=== PATIENT | male | born 1950 | race Caucasian/White ===

== ENCOUNTER 2017-06-13 14:00 | Outpatient (RCR) | payer MEDICARE, OTHER ==
[~2017-06-13 14:00] MED LIST: AMITRIPTYLINE H25 MG PO; ASPIRIN81 MG PO; BENICAR20 MG PO; NEXIUM40 MG PO; NORCO 7.5-3251 EACH PO; PLAVIX75 MG PO; SIMVASTATIN20 MG PO
== END 2017-06-16 ==
LOC: PT 14:00
PROVIDERS: ATTEND Family Medicine
DX: M54.2 Cervicalgia (principal); M62.830 Muscle spasm of back; M62.81 Muscle weakness (generalized)
CPT/HCPCS: 97010 ×3; 97110 ×5; 97162; G8990; G8991

== ENCOUNTER 2017-08-12 10:10 | Inpatient (IN) | payer MEDICARE, OTHER ==
[~2017-08-12] VITALS: Ht 190.5 cm; Wt 77.1 kg
[2017-08-12] MEDS ORDERED: IPRATROPIUM BROMIDE 0.02% 2.5 ML NEB NEB STA (10:11)
[2017-08-12] MEDS ORDERED: ENOXAPARIN INJ 80 MG/0.8 ML SYR SC STA (10:11)
[2017-08-12] MEDS ORDERED: ALBUTEROL SULF 0.083% NEB SOLN 3 ML NEB NEB NR (10:30)
[2017-08-12] MEDS ORDERED: METHYLPREDNISOLONE SOD SUCC 125 MG/2ML VIAL IV NR (10:30)
[2017-08-12 10:41] LABS: BASOPHILS % 0.4 % (0.0-1.0); EOSINOPHILS % 0.1 % (0.0-6.0); HEMATOCRIT 50.7 % (38.2-49.6); HEMOGLOBIN 17.2 g/dL (14.0-18.0); LYMPHOCYTES # (AUTO) 2.4 (1.0-3.2); MEAN CORPUSCULAR HEMOGLOBIN 29.3 pg (28-32); MEAN CORPUSCULAR HGB CONC 33.9 g/dL (31-35); MEAN CORPUSCULAR VOLUME 86.2 fL (81-99); MONOCYTES # (AUTO) 0.8 (0.2-0.8); MONOCYTES % 11.4 % (4.4-11.3); NEUTROPHILS # (AUTO) 3.5 (2.1-6.9); NEUTROPHILS % 51.8 % (38.7-80.0); PLATELET COUNT 204 x10e3/uL (140-360); RED BLOOD COUNT 5.88 x10e6/uL (4.3-5.7); RED CELL DISTRIBUTION WIDTH 14.9 % (11.7-14.4)
[2017-08-12 11:00] LABS: INR 0.98; PROTHROMBIN TIME 12.2 seconds (11.9-14.5)
[2017-08-12 11:01] LABS: ALBUMIN 3.4 g/dL (3.5-5.0); ALBUMIN/GLOBULIN RATIO 0.9 (0.8-2.0); ANION GAP 14.8 mmol/L (8-16); CREATININE, SERUM 1.56 mg/dL (0.72-1.25); PARTIAL THROMBOPLASTIN TIME 31.6 seconds (23.8-35.5); POTASSIUM 4.8 mmol/L (3.5-5.1)
[2017-08-12 11:08] LABS: CREATINE KINASE MB 5.8 ng/mL (0-5.0)
--- NOTE | 2017-08-12 11:17 | Diagnostic Imaging Report ---
PROCEDURE: A single AP view of the chest. COMPARISON: None. INDICATIONS: SHORTNESS OF BREATH FINDINGS: Lines/tubes: None. Lungs: The lungs are well inflated. Opacities in the lungs bilaterally likely represent atelectasis or scarring. Incidental note of an azygos fissure. Upper lung predominant hyperlucency is suggestive of emphysema. There is no evidence of pneumonia or pulmonary edema. Pleura: There is no pleural effusion or pneumothorax. Heart and mediastinum: The heart and the mediastinum are unremarkable. Bones: No acute bony abnormality. Lower cervical fusion hardware. IMPRESSION: No acute cardiopulmonary disease. Dictated by: Davon Pereira M.D. on 08/12/2017 at 11:17 Electronically approved by: Davon Pereira M.D. on 08/12/2017 at 11:17
[2017-08-12] MEDS ORDERED: SODIUM CHLORIDE 0.9% 500ML 500 ML IV ONE (11:30)
[2017-08-12 12:05] LABS: ABG HCO3 24 mmol/L (23-28); ABG PCO2 47 mmHg (41-51); ABG PH 7.31 (7.31-7.41); ABG PO2 74 mmHg (80-105)
[2017-08-12] MEDS ORDERED: LORAZEPAM INJ 2 MG/ML VIAL IV ONE ×2 (12:30→16:30)
--- NOTE | 2017-08-12 13:58 | Diagnostic Imaging Report ---
PROCEDURE: CT scan of the chest WITH intravenous contrast, using PE protocol. TECHNIQUE: The chest was scanned utilizing a multidetector helical scanner from the lung apex through the level of the adrenal glands after the IV administration of 100 cc of Isovue 370. Coronal and sagittal multiplanar reformations were obtained. DLP: 619.4 mGy-cm COMPARISON: None. INDICATIONS: PULMONARY EMBOLISM FINDINGS: Lines/tubes: None. Lungs and Airways: Severe emphysematous changes including a large right apical bulla which occupies the right lung apex. No focal consolidations. Motion artifacts at the lung bases decreases sensitivity for small nodules and ground glass opacities. A rounded opacity in the left apical bronchus (coronal image 67) is associated with adjacent subsegmental atelectasis. No filling defects in the pulmonary arteries to the level of the segmental pulmonary arteries. Pleura: The pleural spaces are clear. Heart and mediastinum: The thyroid gland is normal. No significant mediastinal, hilar or axillary lymphadenopathy is seen. The heart and pericardium are within normal limits. Main pulmonary artery measures 2.8 cm in diameter. Ascending aorta measures 4.6 cm in diameter. Soft tissues: Normal. Abdomen: Left hepatic 0.5 cm and 1 cm hypodensities are too small to characterize. Renal cysts, largest is partially visualized and measures at least 4.3 cm in the right kidney. Additional hypodensities in both kidneys are too small to characterize. Otherwise, the limited views of the visualized liver, spleen, pancreas, or kidneys are unremarkable. The adrenal glands are normal. Bones/Soft Tissues: No acute lowers suspicious osseous lesions. Lower cervical fusion hardware. Left subscapular intramuscular 5.7 x 2.4 cm lipoma. IMPRESSION: 1. No evidence of pulmonary embolism to the level of the segmental pulmonary arteries. 2. Borderline aneurysmal dilatation of the ascending aorta measuring 4.6 cm. 3. Severe emphysematous changes. 4. Suspect small endobronchial lesion resulting in subsegmental atelectasis in the left upper lobe versus rounded mucus plug. Dictated by: Davon Pereira M.D. on 08/12/2017 at 13:58 Electronically approved by: Davon Pereira M.D. on 08/12/2017 at 13:58
[2017-08-12] MEDS ORDERED: ALPRAZOLAM0.5 MG PO ×2 (14:19)
[2017-08-12] MEDS ORDERED: MAGNESIUM400 MG PO (14:19)
[2017-08-12] MEDS ORDERED: FLOMAX0.4 MG PO (14:19)
[2017-08-12] MEDS ORDERED: SUMATRIPTAN IM (14:20)
[2017-08-12] MEDS ORDERED: SYMBICORT 16010.2 GM (14:20)
[2017-08-12] MEDS ORDERED: HYDROMET SYRUP473 ML PO (14:23)
[2017-08-12] MEDS ORDERED: CEFUROXIME250 MG PO (14:23)
[2017-08-12] MEDS ORDERED: ALBUTEROL0.63 MG/3 NEB (14:23)
[2017-08-12] MEDS ORDERED: ZOFRAN ODT4 MG SL (14:23)
[2017-08-12] MEDS ORDERED: SODIUM CHLORIDE FLUSH 10 ML SYR INJ PRN (14:45)
[2017-08-12] MEDS ORDERED: SODIUM CHLORIDE 0.9% 50ML 50 ML ONE (14:49)
[2017-08-12] MEDS ORDERED: IOPAMIDOL 370 MG/ML 200 ML INFUS..BTL INJ ONE (14:50)
[2017-08-12] MEDS ORDERED: ALBUTEROL SULF 0.083% NEB SOLN 3 ML NEB NEB SCH (15:00)
[2017-08-12] MEDS: IPRATROPIUM BROMIDE 0.02% 2.5 ML NEB NEB SCH ×3 (16:30→23:15)
[2017-08-12] MEDS: METHYLPREDNISOLONE SOD SUCC 40 MG/ML VIAL IV SCH (18:20)
--- OUTSIDE RECORDS SUMMARY | 2017-08-12 18:40 | XMS REPORT ---
Author Author [facility] Address Unknown Phone Unavailable Care Team Providers Care Staff Climate Scientist Name Role Phone CHARLOTTE BELL Unavailable Unavailable Problems This patient has no known problems. Allergies, Adverse Reactions, Alerts This patient has no known allergies or adverse reactions. Medications This patient has no known medications. Results Test Description Test Time Test Comments Text Results Atomic Results Result Comments CHEST SINGLE (PORTABLE) [place] [address] Patient Name: EVENS MCDANIEL MR #: [id number] : 1950 Age/Sex: 67/M Req #: [id number] Adm Physician: Ordered by: CHARLOTTE BELL MD Report #: [id number] Location: ER Room/Bed: Procedure: [id number] DX/CHEST SINGLE (PORTABLE) Exam Date: 08/12/17 Exam Time: 1050 REPORT STATUS: Signed PROCEDURE: A single AP view of the chest. COMPARISON: None. INDICATIONS: SHORTNESS OF BREATH FINDINGS: Lines/tubes: None. Lungs: The lungs are well inflated. Opacities in the lungs bilaterally likely represent atelectasis or scarring. Incidental note of an azygos fissure. Upper lung predominant hyperlucency is suggestive of emphysema. There is no evidence of pneumonia or pulmonary edema. Pleura: There is no pleural effusion or pneumothorax. Heart and mediastinum: The heart and the mediastinum are unremarkable. Bones: No acute bony abnormality. Lower cervical fusion hardware. IMPRESSION: No acute cardiopulmonary disease. Dictated by: Davon Smith M.D. on 08/12/2017 at 11:17 Electronically approved by: Davon Smith M.D. on 08/12/2017 at 11:17 Dictated By: DAVON SMITH MD 1117 COPY TO: CHARLOTTE BELL MD CT CHEST W [place] [address] Patient Name: EVENS MCDANIEL MR #: [id number] : 1950 Age/Sex: 67/M Req #: [id number] Adm Physician: Ordered by: CHARLOTTE BELL MD Report #: [id number] Location: ER Room/Bed: Procedure: [id number] CT/CT CHEST W Exam Date: 08/12/17 Exam Time: 1315 REPORT STATUS: Signed PROCEDURE: CT scan of the chest WITH intravenous contrast, using PE protocol. TECHNIQUE: The chest was scanned utilizing a multidetector helical scanner from the lung apex through the level of the adrenal glands after the IV administration of 100 cc of Isovue 370. Coronal and sagittal multiplanar reformations were obtained. DLP: 619.4 mGy-cm COMPARISON: None. INDICATIONS: PULMONARY EMBOLISM FINDINGS: Lines/tubes: None. Lungs and Airways: Severe emphysematous changes including a large right apical bulla which occupies the right lung apex. No focal consolidations. Motion artifacts at the lung bases decreases sensitivity for small nodules and ground glass opacities. A rounded opacity in the left apical bronchus (coronal image 67) is associated with adjacent subsegmental atelectasis. No filling defects in the pulmonary arteries to the level of the segmental pulmonary arteries. Pleura: The pleural spaces are clear. Heart and mediastinum: The thyroid gland is normal. No significant mediastinal, hilar or axillary lymphadenopathy is seen. The heart and pericardium are within normal limits. Main pulmonary artery measures 2.8 cm in diameter. Ascending aorta measures 4.6 cm in diameter. Soft tissues: Normal. Abdomen: Left hepatic 0.5 cm and 1 cm hypodensities are too small to characterize. Renal cysts, largest is partially visualized and measures at least 4.3 cm in the right kidney. Additional hypodensities in both kidneys are too small to characterize. Otherwise, the limited views of the visualized liver, spleen, pancreas, or kidneys are unremarkable. The adrenal glands are normal. Bones/Soft Tissues: No acute lowers suspicious osseous lesions. Lower cervical fusion hardware. Left subscapular intramuscular 5.7 x 2.4 cm lipoma. IMPRESSION: 1. No evidence of pulmonary embolism to the level of the segmental pulmonary arteries. 2. Borderline aneurysmal dilatation of the ascending aorta measuring 4.6 cm. 3. Severe emphysematous changes. 4. Suspect small endobronchial lesion resulting in subsegmental atelectasis in the left upper lobe versus rounded mucus plug. Dictated by: Davon Smith M.D. on 08/12/2017 at 13:58 Electronically approved by: aDvon Smith M.D. on 08/12/2017 at 13:58 Dictated By: DAVON SMITH MD 1358 COPY TO: CHARLOTTE BELL MD
[2017-08-12 18:45] LABS: BILIRUBIN,URINE NEGATIVE (NEGATIVE); CLARITY,URINE CLEAR (CLEAR); COLOR,URINE YELLOW (YELLOW); KETONES,URINE NEGATIVE (NEGATIVE); LEUKOCYTE ESTERASE ,URINE NEGATIVE (NEGATIVE); NITRITE,URINE NEGATIVE (NEGATIVE); PROTEIN,URINE DIPSTICK 1+ (NEGATIVE); URINE UROBILINOGEN 0.2 mg/dL (0.2 - 1)
[2017-08-12] MEDS ORDERED: ONDANSETRON HCL 4 MG ORAL DISINTEGRATING TAB SL PRN (18:45)
[2017-08-12 19:14] LABS: EPITHELIAL CELLS,URINE RARE /LPF; RBC,URINE 0-5 /HPF (0-5)
[2017-08-12 19:15] LABS: FREE THYROXINE INDEX 2.5938 (1.4-3.8); THYROID STIMULATING HORMONE 0.735 uIU/mL (0.350-4.940)
[2017-08-12] MEDS: SODIUM CHLORIDE 0.9% 1000ML 1,000 ML IV SCH (19:50)
--- NOTE | 2017-08-12 20:32 | History and Physical ---
A 67-year-old gentleman comes in with shortness of breath, dyspnea, and orthopnea. HISTORY OF PRESENT ILLNESS: This is a 67-year-old gentleman with a history of COPD. He was in his usual state of health until about a week prior to admission the patient started to have shortness of breath, tachypnea, orthopnea and the patient went to see his PCP, Dr. Miguel. The patient was given antibiotics, and felt a little bit better, but this morning the patient's shortness of breath got really bad. The patient was admitted to the hospital for atrial flutter and COPD exacerbations. PAST MEDICAL HISTORY: History of hypertension, history of peripheral arterial disease, history of anxiety, history of hypertension, history of hyperlipidemia, history of reflux esophagitis and history of BPH. MEDICATIONS: Amitriptyline 75 mg daily, alprazolam 0.5 mg 2 at night time, Benicar 20 mg half tablet daily, simvastatin 20 mg at nighttime, Nexium 40 mg daily, Graham 81 mg daily, magnesium 400 mg daily, Symbicort 168 two puffs twice a day, Tamsulosin 0.4 mg at bedtime, Imitrex shots for migraines, hydrocodone 7.5 mg q.4 h. as needed, Albuterol nebulizers q.4 h. as needed. PAST SURGICAL HISTORY: History of stents in 2016 with history of multiple orthopedic surgeries including cervical diskectomy and also lumbar diskectomy. SOCIAL HISTORY: Smoking since he was 16 years of age, about 1-2 packs a day. No ETOH, no IV drug abuse. REVIEW OF SYSTEMS: Negative for chest pain, positive for shortness of breath, positive for orthopnea. No nausea, vomiting or diarrhea. No constipation. No rectal bleeding. No hematochezia. The patient has not been eating for the last one week secondary to orthopnea. No diplopia and no blurry vision. PHYSICAL EXAMINATION GENERAL: The patient is alert and oriented x3. He is not on BiPAP. HEENT: Normocephalic, atraumatic. Pupils react to light and accommodation. CVS: Regular, tachycardiac. ABDOMEN: Nontender, nondistended. LUNGS: Positive for rhonchi bilaterally EXTREMITIES: Possible clubbing. No edema. The patient's EKG shows atrial flutter at a rate of 115, tachycardia. Chest x-ray normal chest x-ray, normal silhouette . CT no acute disease. CBC is normal. Chemistry: BUN 15 and creatinine of 1.56. Cardiac labs: BNP of 10. ABGs with pH of 7.3, PO2 of 74, bicarb 24. ASSESSMENT: 1. Patient with atrial flutter. 2. Chronic obstructive pulmonary disease exacerbation. 3. History of hypertension. 4. History of smoking. PLAN: The patient is on BiPAP at this time. Solu-Medrol will be given to the patient. A consult with Dr. Gardiner has been done. Will start the patient on Rocephin and Zithromax. For atrial flutter, the patient's regulatory internship is Dr. Ahn. Will consult him. Weight control will be obtained. Will also discontinue the Albuterol and give him Xopenex. Thyroid panel will be done. CBC and CMP will be done in the morning. Further recommendations depending on clinical course. Will continue to monitor the patient and slowly taper off the steroids when the patient is responding. For his anxiety, he is on Xanax at this time. Will give him Ativan 0.5 mg q.6 h. as needed, not recommended for COPD, but will continue because the patient has been taking benzodiazepine and he feels like he is withdrawing. Will continue to monitor the patient and give him IV fluids 125 mL an hour. Job#: [id number]
[2017-08-12 20:40] LABS: CREATINE KINASE MB 7.3 ng/mL (0-5.0)
[2017-08-12] MEDS: LORAZEPAM INJ 2 MG/ML VIAL IV PRN (20:41)
[2017-08-12] MEDS: CEFTRIAXONE SOD 1 GM VIAL IV SCH (20:41)
[2017-08-12] MEDS: LEVALBUTEROL HCL SOLN NEBU 0.63 MG/3 ML NEB INH SCH ×2 (21:00→23:15)
[2017-08-12] MEDS ORDERED: SIMVASTATIN 20 MG TAB PO SCH (21:00)
[2017-08-12 23:36] VITALS: BP 141/99
[2017-08-13] VITALS (57 sets, daily range): BP systolic 80–162; BP diastolic 53–97
[2017-08-13] MEDS: LEVALBUTEROL HCL SOLN NEBU 0.63 MG/3 ML NEB INH SCH ×6 (00:10→19:20)
[2017-08-13] MEDS: IPRATROPIUM BROMIDE 0.02% 2.5 ML NEB NEB SCH ×6 (00:10→19:20)
[2017-08-13] MEDS: METHYLPREDNISOLONE SOD SUCC 40 MG/ML VIAL IV SCH ×5 (00:56→23:45)
[2017-08-13] MEDS: HYDROCODONE/APAP 7.5MG-325MG 1 EA TAB PO SCH ×2 (00:56→05:59)
[2017-08-13] MEDS: LORAZEPAM INJ 2 MG/ML VIAL IV PRN (02:46)
[2017-08-13 05:29] LABS: BASOPHILS % 0.5 % (0.0-1.0); HEMATOCRIT 49.6 % (38.2-49.6); HEMOGLOBIN 16.4 g/dL (14.0-18.0); LYMPHOCYTES # (AUTO) 0.8 (1.0-3.2); LYMPHOCYTES % 19.1 % (18.0-39.1); MEAN CORPUSCULAR HGB CONC 33.1 g/dL (31-35); MEAN CORPUSCULAR VOLUME 87.8 fL (81-99); MONOCYTES # (AUTO) 0.2 (0.2-0.8); MONOCYTES % 5.5 % (4.4-11.3); NEUTROPHILS # (AUTO) 3.1 (2.1-6.9); NEUTROPHILS % 74.7 % (38.7-80.0); PLATELET COUNT 229 x10e3/uL (140-360); RED BLOOD COUNT 5.65 x10e6/uL (4.3-5.7)
[2017-08-13 05:32] LABS: BILIRUBIN,URINE NEGATIVE (NEGATIVE); KETONES,URINE TRACE (NEGATIVE); LEUKOCYTE ESTERASE ,URINE NEGATIVE (NEGATIVE); NITRITE,URINE NEGATIVE (NEGATIVE); URINE UROBILINOGEN 0.2 mg/dL (0.2 - 1)
[2017-08-13 05:37] LABS: CLARITY,URINE SL CLOUDY (CLEAR); COLOR,URINE YELLOW (YELLOW); PROTEIN,URINE DIPSTICK 1+ (NEGATIVE)
[2017-08-13 05:39] LABS: AMORPHOUS SEDIMENT,URINE FEW (FEW); BACTERIA,URINE MODERATE /HPF; EPITHELIAL CELLS,URINE RARE /LPF; RBC,URINE 0-5 /HPF (0-5); WBC,URINE (MAN) 0-5 /HPF (0-5)
[2017-08-13 05:51] LABS: ANION GAP 15.7 mmol/L (8-16); BLOOD UREA NITROGEN 45 mg/dL (7-26); BUN/CREATININE RATIO 42 (6-25); CALCIUM 8.9 mg/dL (8.4-10.2); CARBON DIOXIDE 21 mmol/L (22-29); CHLORIDE 107 mmol/L (98-107); CREATINE KINASE 499 IU/L (30-200); CREATININE, SERUM 1.06 mg/dL (0.72-1.25); EST GLOMERULAR FILTRATION RATE > 60 ML/MIN (60-); GLUCOSE 118 mg/dL (74-118); POTASSIUM 5.7 mmol/L (3.5-5.1); SODIUM 138 mmol/L (136-145)
[2017-08-13] MEDS: SODIUM CHLORIDE 0.9% 1000ML 1,000 ML IV SCH ×2 (05:59→16:09)
[2017-08-13 07:01] LABS: ABG PH 7.32 (7.31-7.41)
[2017-08-13 07:02] LABS: ABG HCO3 24 mmol/L (23-28); ABG PCO2 46 mmHg (41-51); ABG PO2 125 mmHg (80-105)
[2017-08-13] MEDS ORDERED: ROCURONIUM BROMIDE 1 ML ONE ×2 (07:26→07:30)
[2017-08-13] MEDS ORDERED: PROPOFOL IV EMULSION 10MG/ML 100 ML ONE (07:35)
[2017-08-13 07:41] LABS: ANISOCYTOSIS SLIGHT; BLAST CELLS % MANUAL 1; LYMPHOCYTES % (MANUAL) 6 % (19-48); METAMYELOCYTES % (MANUAL) 1 % (0-0); MONOCYTES % (MANUAL) 7 % (3.4-9.0); NEUTROPHILS % (MANUAL) 73 % (40-74); PLATELET MORPHOLOGY COMMENT NORMAL; POIKILOCYTOSIS SLIGHT; RBC MORPHOLOGY COMMENT NORMAL
[2017-08-13] MEDS ORDERED: LEVALBUTEROL HCL SOLN NEBU 1.25 MG/3 ML NEB INH ONE (08:00)
--- NOTE | 2017-08-13 08:00 | Diagnostic Imaging Report ---
PROCEDURE: CHEST SINGLE (PORTABLE) COMPARISON: 08/12/2017. INDICATIONS: R/O PNEUMOTHORAX FINDINGS: Lungs are hyperinflated. Costophrenic sulci are not included on the examination. Advanced emphysematous changes with a large right apical bulla, unchanged. No pneumothorax. Cardiomediastinal contour and pulmonary vasculature are also unchanged. No acute osseous abnormality. Cervical spine fusion hardware partially visualized. CONCLUSION: Advanced emphysematous changes with a large right apical bulla, unchanged. No pneumothorax. Dictated by: Matthew Rodriguez M.D. on 08/13/2017 at 7:59 Electronically approved by: Matthew Rodriguez M.D. on 08/13/2017 at 7:59
--- NOTE | 2017-08-13 08:04 | Diagnostic Imaging Report ---
PROCEDURE: CHEST SINGLE (PORTABLE) COMPARISON: Earlier 08/13/2017. INDICATIONS: POST INTUBATION FINDINGS: See conclusion CONCLUSION: 1. Interval intubation. The tip of the endotracheal tube projects approximately 4 cm superior to the dustin. 2. Unchanged advanced emphysema with a large right apical bulla. Lung bases are not included on the examination. Dictated by: Matthew Rodriguez M.D. on 08/13/2017 at 8:04 Electronically approved by: Matthew Rodriguez M.D. on 08/13/2017 at 8:04
[2017-08-13] MEDS: FENTANYL CITRATE INJ 2,000 MCG in SODIUM CHLORIDE 0.9% 250ML 210 ML IV PRN (08:59)
[2017-08-13] MEDS: MIDAZOLAM HCL 25 MG in SODIUM CHLORIDE 0.9% 50ML 45 ML IV PRN ×4 (08:59→21:29)
[2017-08-13] MEDS ORDERED: ASPIRIN 81 MG CHEW TAB PO SCH (09:00)
[2017-08-13] MEDS ORDERED: PANTOPRAZOLE SOD 40 MG TABEC PO SCH (09:00)
[2017-08-13] MEDS ORDERED: AMITRIPTYLINE HCL 25 MG TAB PO SCH (09:00)
[2017-08-13] MEDS ORDERED: OLMESARTAN 20 MG TAB PO SCH (09:00)
[2017-08-13] MEDS ORDERED: TAMSULOSIN HCL 0.4 MG CAP PO SCH (09:00)
[2017-08-13] MEDS: AZITHROMYCIN 500MG/NS 250 ML 250 ML IV SCH (10:03)
[2017-08-13] MEDS: ENOXAPARIN INJ 80 MG/0.8 ML SYR SC SCH ×2 (10:03→21:05)
[2017-08-13 10:05] LABS: ABG PH 7.21 (7.31-7.41)
[2017-08-13 10:06] LABS: ABG HCO3 27 mmol/L (23-28); ABG PCO2 66 mmHg (41-51); ABG PO2 125 mmHg (80-105)
[2017-08-13] MEDS: METOPROLOL TARTRATE INJ 1 MG/ML VIAL IV SCH ×4 (10:38→21:05)
--- NOTE | 2017-08-13 14:53 | Consultation ---
DATE OF CONSULTATION: PULMONARY CRITICAL CARE CONSULTATION REASON FOR CONSULTATION: Shortness of breath, fever and ventilator management. CHIEF COMPLAINTS: Shortness of breath getting worse for last 1-1/2 weeks. HPI: Mr. Daugherty is a 67-year-old male who presented to the emergency room with complaint of shortness of breath, dyspnea and orthopnea. The symptoms were going on for 1-1/2 weeks. Patient received antibiotics and Solu-Medrol shot from PCP, Dr. Gurjit Ying. He felt a little better, but his shortness of breath progressively got worse and so his decided to bring him to the emergency room. He was put on BiPAP and oxygen, and was not improving, and becoming more and more short of breath with reduced air entry bilaterally. He was intubated this morning. He is currently sedated and intubated. The source of history is the patient's . REVIEW OF SYSTEMS: Unable to elicit any as patient is intubated and sedated. PAST MEDICAL HISTORY: Hypertension, peripheral arterial disease, anxiety, reflux esophagitis, hyperlipidemia, severe COPD. Patient is not on home oxygen. PAST SURGICAL HISTORY: Stents in the lower extremity in 2016. He had cervical disk surgery, jaw surgery, back surgeries. Patient is on disability because of chronic back pain. FAMILY AND SOCIAL HISTORY: He has been a smoker for 50+ years of 1-2 packs per day. Denies any alcohol or drug use. PHYSICAL EXAMINATION VITALS: Temperature 98, pulse of 100, blood pressure is 145/97. HEENT: Head is atraumatic and normocephalic. Pupils are reactive. NECK: Supple. CHEST: He is intubated. Chest with markedly reduced air entry. HEART: S1 and S2 audible. No murmurs, gallops or rub. ABDOMEN: Soft, nontender and nondistended. Bowel sounds audible. EXTREMITIES: No clubbing, cyanosis or edema. NEUROLOGIC: Sedated and intubated. LABS: White count of 6.69, hemoglobin 17.2 and platelets 204,000. Chemistry: Sodium 138, potassium 5.7, chloride 107, BUN 45, creatinine 1.06. INR is 0.98. I reviewed the chest x-ray and CT chest. It is showing severe bullous disease with large bullae on the right. No definite infiltrate. ASSESSMENT AND PLAN: Mr. Daugherty is a 67-year-old male who presented to the emergency room with worsening shortness of breath and has severe chronic obstructive pulmonary disease. Computerized tomography of severe emphysema as well. CURRENT PROBLEMS 1. Acute exacerbation of chronic obstructive pulmonary disease. 2. Smoker. 3. Hypertension. 4. Peripheral arterial disease. 5. Polycythemia secondary to smoking and still smokes. PLAN 1. The patient has been intubated. I have reviewed the ventilator settings. Patient has a problem with auto peeping. I have reduced the rate to 14 and increased the tidal volume to 500 with increase in the PEEP to 8. Ventilator setting will observed at bedside. Patient's breathing was observed at bedside. He has been synched with the ventilator. 2. IV Rocephin and azithromycin. 3. Continue the patient on Solu-Medrol as ordered. Discussed with the patient's at bedside in detail. Reviewed all the images. I discussed the imaging findings with the patient and the patient's as well. Critical care time spent 45 minutes. Job#: [id number] YOMAIRA
[2017-08-13] MEDS ORDERED: FUROSEMIDE INJ 10 MG/ML 2 ML VIAL IV ONE (16:15)
--- NOTE | 2017-08-13 20:45 | Consultation ---
DATE OF CONSULTATION: August 13, 2017 CARDIOLOGY CONSULTATION REQUESTING PHYSICIAN: Dr. Uriel Mo REASON FOR CONSULTATION: Atrial flutter. HISTORY OF PRESENT ILLNESS: This is a 67-year-old male with history of COPD, hypertension, peripheral arterial disease, status post lower extremity revascularization, and hyperlipidemia, who presented with shortness of breath. All history is obtained from the EMR. The patient apparently had shortness of breath, orthopnea and tachypnea 1 week prior to admission. He went to see his PCP, Dr. Miguel, and was given antibiotic with some relief. However, he had worsening shortness of breath yesterday and presented to the hospital for shortness of breath and atrial flutter. He was started on BiPAP. However, he continued to have increasing respiratory distress and was subsequently intubated by pulmonary. He remains currently intubated and sedated. No family was at bedside for further history. REVIEW OF SYSTEMS: Unable to obtain as the patient is intubated and sedated. PAST MEDICAL HISTORY 1. COPD. 2. Hypertension. 3. Hyperlipidemia. 4. Peripheral arterial disease, status post revascularization. 5. Minimal coronary artery disease on cardiac catheterization. 6. Anxiety. 7. Reflux. PAST SURGICAL HISTORY 1. Back surgery. 2. Jaw surgery. 3. Neck surgery. SOCIAL HISTORY: Extensive smoking history. No alcohol or drugs. FAMILY HISTORY: Noncontributory. PHYSICAL EXAMINATION VITAL SIGNS: Temperature 98.8 degrees, pulse 101, respiratory rate 18, blood pressure 149/96, oxygen saturation 96% on mechanical ventilation. GENERAL: Well-developed, well-nourished, in no acute distress, intubated and sedated. HEENT: Normocephalic and atraumatic. Pupils are equal. No scleral icterus. NECK: Supple. No thyromegaly or cervical lymphadenopathy. No carotid bruit. LUNGS: Reduced breath sounds bilaterally. No wheezes or crackles. CARDIOVASCULAR: Normal rate, regular rhythm. No murmur. Normal S1 and S2. ABDOMEN: Soft. Nontender. EXTREMITIES: No edema. NEURO: Unable to obtain secondary to sedation. LABS: WBC 4.19, hemoglobin 16.4, hematocrit 49.6, platelets 229. Sodium 138, potassium 5.7, chloride 107, CO2 21, BUN 45, creatinine 1.06. Troponin 0.017. EKG: Sinus tachycardia, left axis deviation, incomplete right bundle-branch block, possible anterior infarct age undetermined. ECHOCARDIOGRAM: Technically difficult study with normal LV size and function with mild LVH, pseudonormal LV filling pattern. RV is severely enlarged, but systolic function appears normal. IMPRESSION 1. Chronic obstructive pulmonary disease exacerbation. 2. Suspect atrial flutter. 3. Tobacco abuse. 4. Hypertension. 5. Peripheral arterial disease, status post revascularization. 6. Minimal coronary artery disease on cardiac catheterization. 7. Hyperlipidemia. RECOMMENDATIONS: Continue current cardiac medications. IV antibiotics per primary service. Review of the EKGs and telemetry does not demonstrate any atrial fibrillation or atrial flutter. There is 1 EKG with machine reading of atrial flutter. However, on exam, it appears to be sinus tachycardia. We will continue to monitor the patient on telemetry. Ventilator management per pulmonary. Thank you for this consult. We will continue to follow. Job#: [id number]
[2017-08-13] MEDS: CEFTRIAXONE SOD 1 GM VIAL IV SCH (21:05)
[2017-08-13] MEDS ORDERED: SODIUM CHLORIDE 0.9% 1000ML 1,000 ML IV ONE (23:00)
[2017-08-14] VITALS (91 sets, daily range): BP systolic 81–132; BP diastolic 49–78
[2017-08-14] MEDS: METOPROLOL TARTRATE INJ 1 MG/ML VIAL IV SCH ×6 (01:39→21:47)
[2017-08-14] MEDS: SODIUM CHLORIDE 0.9% 1000ML 1,000 ML IV SCH ×3 (01:40→17:29)
[2017-08-14] MEDS: NOREPINEPHRINE BITARTRATE/ NS 250 ML IV PRN ×2 (01:40→16:54)
[2017-08-14] MEDS: LEVALBUTEROL HCL SOLN NEBU 0.63 MG/3 ML NEB INH SCH ×6 (03:40→23:40)
[2017-08-14] MEDS: IPRATROPIUM BROMIDE 0.02% 2.5 ML NEB NEB SCH ×6 (03:40→23:40)
[2017-08-14] MEDS: MIDAZOLAM HCL 25 MG in SODIUM CHLORIDE 0.9% 50ML 45 ML IV PRN ×3 (04:49→14:23)
[2017-08-14] MEDS: METHYLPREDNISOLONE SOD SUCC 40 MG/ML VIAL IV SCH ×2 (05:09→21:46)
[2017-08-14 06:08] LABS: BASOPHILS % 0.2 % (0.0-1.0); HEMATOCRIT 50.9 % (38.2-49.6); HEMOGLOBIN 15.8 g/dL (14.0-18.0); LYMPHOCYTES # (AUTO) 0.6 (1.0-3.2); LYMPHOCYTES % 5.9 % (18.0-39.1); MEAN CORPUSCULAR HEMOGLOBIN 28.7 pg (28-32); MEAN CORPUSCULAR VOLUME 92.4 fL (81-99); MONOCYTES # (AUTO) 0.8 (0.2-0.8); MONOCYTES % 7.6 % (4.4-11.3); NEUTROPHILS # (AUTO) 8.7 (2.1-6.9); PLATELET COUNT 288 x10e3/uL (140-360); RED BLOOD COUNT 5.51 x10e6/uL (4.3-5.7); RED CELL DISTRIBUTION WIDTH 15.9 % (11.7-14.4)
[2017-08-14 06:36] LABS: ALBUMIN 2.9 g/dL (3.5-5.0); ALBUMIN/GLOBULIN RATIO 0.9 (0.8-2.0); ANION GAP 12.3 mmol/L (8-16); CALCIUM 8.5 mg/dL (8.4-10.2); CREATININE, SERUM 1.21 mg/dL (0.72-1.25)
--- NOTE | 2017-08-14 06:41 | Diagnostic Imaging Report ---
EXAM: CHEST SINGLE (PORTABLE), AP 1 view INDICATION: Ventilated patient COMPARISON: None FINDINGS: LINES/TUBES: Stable endotracheal tube. LUNGS: No consolidations or edema. Emphysematous changes with large bulla in the right upper lung. PLEURA: No effusions or pneumothorax. HEART AND MEDIASTINUM: Normal size and contour. BONES AND SOFT TISSUES: No acute findings. IMPRESSION: No interval change. Signed by: Dr. Rosita Eastman M.D. on 08/14/2017 6:38 AM
[2017-08-14 06:46] LABS: POTASSIUM 6.3 mmol/L (3.5-5.1)
[2017-08-14] MEDS: FENTANYL CITRATE INJ 2,000 MCG in SODIUM CHLORIDE 0.9% 250ML 210 ML IV PRN (06:48)
[2017-08-14] MEDS ORDERED: SODIUM CHLORIDE 0.9% 1000ML 1,000 ML IV ONE (07:00)
[2017-08-14] MEDS ORDERED: SODIUM CHLORIDE 0.9% 500ML 500 ML IV ONE (07:15)
[2017-08-14] MEDS ORDERED: DEXTROSE 50% SYRINGE 50 ML IV STA (07:47)
[2017-08-14] MEDS ORDERED: SOD POLYSTYRENE SULFONATE SUSP 15 GM/60 ML BTL PR ONE (08:00)
[2017-08-14] MEDS ORDERED: INSULIN REGULAR, HUMAN 100 UNIT/1 ML 3ML VIAL IV ONE (08:00)
--- NOTE | 2017-08-14 09:02 | Consultation ---
DATE OF CONSULTATION: 08.14 REASON FOR CONSULTATION: Hyperkalemia. Thank you for allowing us to participate in Mr. Daugherty's care. This is a 67-year-old male with a history of COPD came with worsening exacerbation and started on antibiotics. He did not really get better with outpatient therapy. Subsequently, got admitted to the hospital. He is now intubated for worsening respiratory status. The pCO2 was elevated. Creatinine was 1.06 and has gone up to 1.2. He has been on pressors. Fluids are running. The main problem has actually been urine output trending down, and his potassium being elevated at 6.4 on repeat. Initially, UA done yesterday showed some cloudy urine, blood and protein. However, this was a Matta catheter obtained specimen. No casts were reported on that. The pCO2 was as high as 66 yesterday. Hemoglobin has come down to 15.8 from 72. PAST HISTORY 1. COPD. 2. Baseline creatinine of 1 to 1.1 two years ago. 3. History of smoking, ongoing nicotine use. 4. Hypertension. 5. Recent ARB use. 6. Hypertension. History of IV contrast 2 days ago. MEDICATIONS: Currently, on IV NS, Solu-Medrol, norepinephrine, ceftriaxone, azithromycin, metoprolol. He had gotten some Kayexalate. Benicar has been stopped. Protonix has been stopped. Amitriptyline has been stopped. SOCIAL HISTORY: History of smoking at least 40-pack years. FAMILY HISTORY: Hypertension. REVIEW OF SYSTEMS: Unable to obtain as he is intubated. PHYSICAL EXAMINATION GENERAL: Laying in bed in no distress. Appears sedated. VITALS: Pulse 90 and regular, blood pressure 111/69, temperature 99.1. HEENT: Orally intubated. NECK: Veins are not distended. CHEST: Clear with diminished breath sounds bilaterally. CARDIAC: Normal heart tones. Rhythm sounds regular. Unable to hear an S4. EXTREMITIES: No edema. Very cool to touch. ABDOMEN: Benign. NEURO: Appears sedated. LABS: As noted, hemoglobin 15.8, white count 10,000 and platelets are 288,000. UA showed some protein and blood. Blood gas with pH of 7.21, pCO2 66, pO2 125. Potassium is 6.3, sodium 142, chloride 114, bicarb 22, creatinine 1.2, BUN 56. It was as high as 11.5 before and coming down. CK was only 499. ASSESSMENT 1. Acute kidney injury, presumed acute tubular necrosis: There may be a prerenal component from the low blood pressure, as well as potentially high pCO2. 2. Hyperkalemia from any leftover Benicar in the system, as well as poor tubular flow, as well as acute kidney injury and loss of GFR. 3. Probably has some respiratory acidosis that did not quite get compensated. PLAN: From a renal standpoint, tending towards oliguria. From a renal standpoint, I agree with blood pressure support and fluids. Recheck potassium. Will give him 2 amps of D50, regular insulin and Kayexalate. Discussed with the . Will also get urine ultrasound and urine eosinophils as the kidney _injury may still be evolving. Thank you for allowing us to participate in Mr. Daugherty's care. Will follow along. Job#: [id number] YOMAIRA GUTIERREZ
[2017-08-14] MEDS: ENOXAPARIN INJ 80 MG/0.8 ML SYR SC SCH ×2 (09:30→21:46)
[2017-08-14 09:37] LABS: ABG HCO3 24 mmol/L (23-28); ABG PCO2 76 mmHg (41-51); ABG PO2 135 mmHg (80-105)
[2017-08-14] MEDS: AZITHROMYCIN 500MG/NS 250 ML 250 ML IV SCH (10:00)
--- NOTE | 2017-08-14 10:22 | Diagnostic Imaging Report ---
PROCEDURE: A single AP view of the chest. COMPARISON: [facility], , CHEST SINGLE (PORTABLE), 08/14/2017, 5:30. INDICATIONS: COPD FINDINGS: Lines/tubes: Unchanged position of an endotracheal tube. Lungs: Large right upper lobe bullae. Chronic appearing basilar interstitial changes. Lungs remain hyperexpanded. Pleura: There is no pleural effusion or pneumothorax. Heart and mediastinum: The heart and the mediastinum are unremarkable. Bones: No acute bony abnormality. Partially visualized cervical plate. IMPRESSION: No interval change. Cesar Dunlap D.O. Dictated by: Cesar Dunlap D.O. on 08/14/2017 at 10:22 Electronically approved by: Cesar Dunlap D.O. on 08/14/2017 at 10:22
[2017-08-14 10:26] LABS: ABG HCO3 24 mmol/L (23-28); ABG PCO2 64 mmHg (41-51); ABG PH 7.18 (7.31-7.41); ABG PO2 124 mmHg (80-105)
[2017-08-14] MEDS ORDERED: THEOPHYLLINE 300 MG TABSR PO SCH (11:30)
--- NOTE | 2017-08-14 13:45 | Diagnostic Imaging Report ---
PROCEDURE:US RETROPERITONEAL ( KIDNEY ). COMPARISON:None. INDICATIONS:ARF TECHNIQUE: Wynn-scale and color sonographic images of the bilateral kidneys and bladder were obtained in transverse and longitudinal planes. FINDINGS: RIGHT KIDNEY: Measures 12.0 cm in length. Cysts: Multiple and unilocular measuring up to 2.7 x 3.8 x 4.4 cm Solid masses: None Stones: None Hydronephrosis: None Echogenicity: Mildly increased LEFT KIDNEY: Measures 11.7 cm in length. Cysts: Cyst in the interpolar cortex measures 3.4 x 2.7 x 3.3 cm Solid masses: None Stones: None Hydronephrosis: None Echogenicity: Mildly increased Bladder: Underdistended and collapsed around a Matta catheter Survey images of the liver and spleen demonstrate no focal abnormality. CONCLUSION: 1. Increased renal echotexture suggestive of medical renal disease. 2. Bilateral renal cysts. No hydronephrosis. Dictated by: Tucker Mendez M.D. on 08/14/2017 at 13:45 Electronically approved by: Tucker Mendez M.D. on 08/14/2017 at 13:45
[2017-08-14] MEDS: THEOPHYLLINE 80 MG/15 ML SYRP GT SCH ×2 (13:51→21:46)
--- NOTE | 2017-08-14 13:54 | Diagnostic Imaging Report ---
PROCEDURE:US CHEST (INCL MEDIASTINUM) COMPARISON:Chest x-ray 08/14/17 INDICATIONS:EFFUSIONS FINDINGS: Sonographic interrogation of the right and left chest demonstrates no evidence of pleural effusion. Visualized portions of the right upper quadrant demonstrate a cyst in the right kidney. Visualized portion of the liver is unremarkable. Impression: No evidence of pleural effusion. Dictated by: Tucker Mendez M.D. on 08/14/2017 at 13:53 Electronically approved by: Tucker Mendez M.D. on 08/14/2017 at 13:53
--- NOTE | 2017-08-14 13:56 | Progress Note ---
DATE: August 14, 2017 CARDIOLOGY PROGRESS NOTE SUBJECTIVE: Patient remains intubated and sedated. He is on Levophed 10 mcg per minute. Per family, patient has apparently lost a significant amount of weight recently. OBJECTIVE VITAL SIGNS: Temperature 99.1 degrees, pulse 116, respiratory rate 14, blood pressure 111/69, oxygen saturation 94% on mechanical ventilation. GENERAL: A well-developed, well-nourished man in no acute distress, intubated and sedated. LUNGS: Reduced air movement bilaterally. No wheezes or crackles appreciated. CARDIOVASCULAR: Normal rate, regular rhythm. No murmur. Normal S1 and S2. ABDOMEN: Soft, nontender. EXTREMITIES: No edema. CARDIAC MEDICATIONS 1. Enoxaparin 80 mg subcutaneous q.12 h. 2. Levophed 10 mcg per minute. LABS: WBC 10.1, hemoglobin 15.8, hematocrit 50.9, platelets 288. Sodium 142, potassium 6.3, chloride 114, CO2 22, BUN 56, creatinine 1.21. CHEST X-RAY: No interval change. TELEMETRY: Normal sinus rhythm. IMPRESSION 1. Chronic obstructive pulmonary disease exacerbation. 2. Suspected atrial flutter. 3. Tobacco abuse. 4. Hypertension. 5. Peripheral arterial disease status post revascularization. 6. Minimal coronary artery disease on cardiac catheterization. 7. Hyperlipidemia. RECOMMENDATIONS: Continue current cardiac medications. Patient is hypotensive, requiring Levophed supportive care with fluids as needed as well. IV antibiotics per primary service. No atrial arrhythmias have been identified on telemetry. Continue to monitor. Bilateral arterial and venous Dopplers were performed due to inability to take palpable pulses bilaterally. We will review. Thank you for this consult. We will continue to follow. Job#: [id number] EV
[2017-08-14] MEDS: LORAZEPAM INJ 2 MG/ML VIAL IV PRN (15:52)
[2017-08-14] MEDS ORDERED: SOD POLYSTYRENE SULFONATE SUSP 15 GM/60 ML BTL PO ONE (17:30)
--- NOTE | 2017-08-14 18:47 | Diagnostic Imaging Report ---
PROCEDURE: CHEST XRAY LINE PLACEMENT COMPARISON: 0940 hours. INDICATIONS: LINE PLACEMENT FINDINGS: LINES/TUBES: Left PICC line terminates in the SVC. No pneumothorax. Endotracheal tube terminates 5-6 cm above the dustin. Enteric tube extends past the diaphragm. LUNGS: Bullous emphysema is re-demonstrated. Crowding of the lung bases is stable. PLEURA: No effusions or pneumothorax. HEART \T\ MEDIASTINUM: The heart is within normal size-limits. BONES \T\ SOFT TISSUES: Stable cervical fusion plate. No acute findings. CONCLUSION: Support devices as described above. No pneumothorax. Stable chest. Dictated by: Tucker Mendez M.D. on 08/14/2017 at 18:47 Electronically approved by: Tucker Mendez M.D. on 08/14/2017 at 18:47
[2017-08-14] MEDS: CEFTRIAXONE SOD 1 GM VIAL IV SCH (21:44)
[2017-08-15] VITALS (75 sets, daily range): BP systolic 85–131; BP diastolic 50–84
[2017-08-15] MEDS: METOPROLOL TARTRATE INJ 1 MG/ML VIAL IV SCH ×6 (02:00→22:00)
[2017-08-15] MEDS: SODIUM CHLORIDE 0.9% 1000ML 1,000 ML IV SCH (02:38)
[2017-08-15] MEDS: IPRATROPIUM BROMIDE 0.02% 2.5 ML NEB NEB SCH ×5 (03:05→18:40)
[2017-08-15] MEDS: LEVALBUTEROL HCL SOLN NEBU 0.63 MG/3 ML NEB INH SCH ×5 (03:05→18:40)
[2017-08-15 05:48] LABS: ANION GAP 12.5 mmol/L (8-16); BLOOD UREA NITROGEN 44 mg/dL (7-26); BUN/CREATININE RATIO 40 (6-25); CALCIUM 8.5 mg/dL (8.4-10.2); CARBON DIOXIDE 23 mmol/L (22-29); CHLORIDE 116 mmol/L (98-107); CREATININE, SERUM 1.11 mg/dL (0.72-1.25); EST GLOMERULAR FILTRATION RATE > 60 ML/MIN (60-); GLUCOSE 140 mg/dL (74-118); MAGNESIUM 1.9 MG/DL (1.3-2.1); POTASSIUM 4.5 mmol/L (3.5-5.1); SODIUM 147 mmol/L (136-145)
[2017-08-15] MEDS: THEOPHYLLINE 80 MG/15 ML SYRP GT SCH ×3 (07:30→22:00)
[2017-08-15] MEDS: FENTANYL CITRATE INJ 2,000 MCG in SODIUM CHLORIDE 0.9% 250ML 210 ML IV PRN ×2 (09:04→20:00)
[2017-08-15] MEDS: AZITHROMYCIN 500MG/NS 250 ML 250 ML IV SCH (09:54)
[2017-08-15] MEDS: METHYLPREDNISOLONE SOD SUCC 40 MG/ML VIAL IV SCH ×2 (09:54→21:00)
[2017-08-15] MEDS: ENOXAPARIN INJ 80 MG/0.8 ML SYR SC SCH ×2 (09:54→21:00)
[2017-08-15] MEDS ORDERED: DEXTROSE 5% 1,000 ML IV ONE (10:15)
[2017-08-15] MEDS: FUROSEMIDE INJ 10 MG/ML 4 ML VIAL IV SCH ×2 (10:34→20:00)
[2017-08-15 12:15] LABS: ABG HCO3 25 mmol/L (23-28); ABG PCO2 64 mmHg (41-51); ABG PO2 96 mmHg (80-105)
[2017-08-15] MEDS: MIDAZOLAM HCL 25 MG in SODIUM CHLORIDE 0.9% 50ML 45 ML IV PRN ×3 (13:20→20:30)
--- NOTE | 2017-08-15 13:34 | Progress Note ---
DATE: August 15, 2017 CARDIOLOGY PROGRESS NOTE SUBJECTIVE: Patient remains intubated and sedated. He is on Levophed 3 mcg/minute. OBJECTIVE VITAL SIGNS: Temperature 100.9 degrees, pulse 129, respiratory rate 20, blood pressure 120/76, and oxygen saturation 94% on mechanical ventilation. GENERAL: A well-developed, well-nourished man, in no acute distress, intubated and sedated. LUNGS: Reduced air movement bilaterally. No wheezes or crackles. CARDIOVASCULAR: Normal rate, regular rhythm. No murmur. Normal S1 and S2. ABDOMEN: Soft and nontender. EXTREMITIES: No edema. CARDIAC MEDICATIONS 1. Furosemide 40 mg IV t.i.d. 2. Enoxaparin 80 mg subcutaneous q.12 hours. 3. Levophed 3 mcg/minute. LABS: Sodium 147, potassium 4.5, chloride 116, CO2 of 23, BUN 44, and creatinine 1.11. TELEMETRY: Sinus tachycardia. IMPRESSION 1. Chronic obstructive pulmonary disease exacerbation. 2. Acute right superficial femoral vein deep venous thrombosis. 3. Suspected atrial flutter. 4. Peripheral arterial disease, status post revascularization. 5. Tobacco abuse. 6. Hypertension. 7. Minimal coronary artery disease, on cardiac catheterization. 8. Hyperlipidemia. RECOMMENDATIONS: Continue current cardiac medications. Patient should continue anticoagulation with enoxaparin for patient's newly diagnosed DVT. Patient continues to require Levophed for blood pressure support. IV fluids as necessary. Patient's sinus tachycardia is a physiologic response to patient's current illness. We would not administer beta-blockers or calcium channel blockers unless heart rate increases further. No atrial arrhythmias have been identified on telemetry. We will continue to monitor. Bilateral lower extremity arterial Dopplers demonstrate monophasic flow in the right lower extremity suggestive of aortoiliac disease; however, patient's foot is currently warm and without any wounds. Monitor for now. Further evaluation as an outpatient. Thank you for this consult. We will continue to follow. Job#: [id number] HOLLIE
[2017-08-15] MEDS ORDERED: HYDROMORPHONE 20MG/ NS 100ML IV PRN (18:45)
[2017-08-15] MEDS: CEFTRIAXONE SOD 1 GM VIAL IV SCH (20:00)
[2017-08-15] MEDS: AMITRIPTYLINE HCL 25 MG TAB PO SCH (21:00)
[2017-08-16] VITALS (97 sets, daily range): BP systolic 11–184; BP diastolic 48–99
[2017-08-16] MEDS: MIDAZOLAM HCL 25 MG in SODIUM CHLORIDE 0.9% 50ML 45 ML IV PRN ×6 (00:30→20:00)
[2017-08-16] MEDS: METOPROLOL TARTRATE INJ 1 MG/ML VIAL IV SCH ×6 (02:00→21:15)
[2017-08-16] MEDS: IPRATROPIUM BROMIDE 0.02% 2.5 ML NEB NEB SCH ×6 (03:30→23:05)
[2017-08-16] MEDS: LEVALBUTEROL HCL SOLN NEBU 0.63 MG/3 ML NEB INH SCH ×6 (03:30→23:05)
[2017-08-16] MEDS ORDERED: DEXTROSE 5% 1,000 ML IV ONE ×2 (05:44→18:30)
[2017-08-16] MEDS: FUROSEMIDE INJ 10 MG/ML 4 ML VIAL IV SCH ×3 (06:00→21:00)
[2017-08-16 06:03] LABS: BASOPHILS % 0.1 % (0.0-1.0); HEMATOCRIT 42.5 % (38.2-49.6); HEMOGLOBIN 13.6 g/dL (14.0-18.0); LYMPHOCYTES # (AUTO) 0.3 (1.0-3.2); LYMPHOCYTES % 3.7 % (18.0-39.1); MEAN CORPUSCULAR HEMOGLOBIN 28.9 pg (28-32); MEAN CORPUSCULAR VOLUME 90.4 fL (81-99); MONOCYTES # (AUTO) 0.8 (0.2-0.8); MONOCYTES % 9.3 % (4.4-11.3); NEUTROPHILS # (AUTO) 7.3 (2.1-6.9); NEUTROPHILS % 86.2 % (38.7-80.0); PLATELET COUNT 266 x10e3/uL (140-360); RED CELL DISTRIBUTION WIDTH 15.9 % (11.7-14.4)
[2017-08-16 06:26] LABS: ALBUMIN 2.3 g/dL (3.5-5.0); ALBUMIN/GLOBULIN RATIO 0.7 (0.8-2.0); ANION GAP 10.6 mmol/L (8-16); CALCIUM 8.4 mg/dL (8.4-10.2); CREATININE, SERUM 1.29 mg/dL (0.72-1.25); POTASSIUM 3.6 mmol/L (3.5-5.1)
[2017-08-16] MEDS: THEOPHYLLINE 80 MG/15 ML SYRP GT SCH ×3 (08:00→21:15)
[2017-08-16] MEDS: ENOXAPARIN INJ 80 MG/0.8 ML SYR SC SCH ×2 (09:00→21:00)
[2017-08-16] MEDS: AZITHROMYCIN 500MG/NS 250 ML 250 ML IV SCH (09:40)
[2017-08-16] MEDS: METHYLPREDNISOLONE SOD SUCC 40 MG/ML VIAL IV SCH ×2 (09:40→21:00)
[2017-08-16] MEDS ORDERED: HYDROMORPHONE 100 ML IV PRN (10:00)
--- NOTE | 2017-08-16 14:16 | Diagnostic Imaging Report ---
PROCEDURE: A single AP view of the chest. COMPARISON: Patients [facility], DX, CHEST XRAY LINE PLACEMENT, 08/14/2017, 18:35. INDICATIONS: SHORTNESS OF BREATH FINDINGS: Lines/tubes: Endotracheal tube, left-sided PICC and nasogastric tube are again noted. Lungs: Biapical bullous changes; right side greater than left. Basilar interstitial prominence. Pleura: There is no pleural effusion or pneumothorax. Heart and mediastinum: The heart and the mediastinum are unremarkable. Bones: No acute bony abnormality. Cervical fixation plate partially visualized. IMPRESSION: No significant interval change. Cesar Dunlap D.O. Dictated by: Cesar Dunlap D.O. on 08/16/2017 at 14:16 Electronically approved by: Cesar Dunlap D.O. on 08/16/2017 at 14:16
--- NOTE | 2017-08-16 14:19 | Diagnostic Imaging Report ---
PROCEDURE:X-RAY ABDOMEN - KUB COMPARISON:None. INDICATIONS:NG tube localization FINDINGS: There is an NG tube that extends below the diaphragm. Study is degraded due to patient motion. Bilateral iliac artery stents are present. There are no dilated loops of bowel to suggest obstruction. Rectal contrast is noted. There are no masses or abnormal calcifications. There is no evidence of free air. No acute osseous abnormalities are present. Degenerative changes of the spine. CONCLUSION: No acute abdominal abnormality. Cesar Dunlap D.O. Dictated by: Cesar Dunlap D.O. on 08/16/2017 at 14:19 Electronically approved by: Cesar Dunlap D.O. on 08/16/2017 at 14:19
--- NOTE | 2017-08-16 19:58 | Progress Note ---
DATE: August 16, 2017 CARDIOLOGY PROGRESS NOTE SUBJECTIVE: The patient remains intubated and sedated. He is on Levophed 2 mcg per minute. OBJECTIVE VITAL SIGNS: Temperature 96.8 degrees, pulse 116, respiratory rate 20, blood pressure 119/79, oxygen saturation 96% on mechanical ventilation. GENERAL: Intubated and sedated and in no acute distress. LUNGS: Reduced air movement bilaterally. No wheezes or crackles. CARDIOVASCULAR: Normal rate, regular rhythm. No murmur. Normal S1 and S2. ABDOMEN: Soft and nontender. EXTREMITIES: No edema. CARDIAC MEDICATIONS 1. Furosemide 40 mg IV q.8 h. 2. Levophed 3 mcg/minute. LABS: WBC 8.4, hemoglobin 13.6, hematocrit 42.5, platelets 266,000, sodium 146, potassium 3.6, chloride 113, CO2 of 26. BUN 49, creatinine 1.29. Chest x-ray with no significant interval change. TELEMETRY: Normal sinus rhythm, sinus tachycardia. IMPRESSION 1. Chronic obstructive pulmonary disease exacerbation. 2. Acute right superficial femoral vein deep venous thrombosis. 3. Sinus tachycardia. 4. Peripheral arterial disease, status post revascularization. 5. Minimal coronary artery disease on cardiac catheterization 6. Tobacco abuse. 7. Hypertension. 8. Hyperlipidemia. RECOMMENDATIONS: Continue current cardiac medications. Anticoagulation with Enoxaparin for the patient's newly diagnosed DVT. The patient continues to require Levophed for blood pressure. IV fluids as necessary. The sinus tachycardia is a physiologic response to the patient's current illness. We will not administer beta blockers or calcium channel blockers unless heart rate increases further. No atrial arrhythmias have been identified on telemetry. We will continue to monitor. Bilateral lower extremity Dopplers demonstrate monophasic flow on the right lower extremity suggestive of aortoiliac disease However, the patient's foot is warm currently without any wounds. Will monitor for now. Further evaluation as an outpatient. Thank you for this consult. We will continue to follow. Job#: [id number]
[2017-08-16] MEDS: AMITRIPTYLINE HCL 25 MG TAB PO SCH (21:00)
[2017-08-16] MEDS: CEFTRIAXONE SOD 1 GM VIAL IV SCH (21:00)
[2017-08-17] VITALS (98 sets, daily range): BP systolic 79–204; BP diastolic 48–142
[2017-08-17] MEDS: METOPROLOL TARTRATE INJ 1 MG/ML VIAL IV SCH ×6 (02:36→22:00)
[2017-08-17] MEDS: MIDAZOLAM HCL 25 MG in SODIUM CHLORIDE 0.9% 50ML 45 ML IV PRN ×4 (02:37→23:16)
[2017-08-17] MEDS: IPRATROPIUM BROMIDE 0.02% 2.5 ML NEB NEB SCH ×6 (02:50→22:45)
[2017-08-17] MEDS: LEVALBUTEROL HCL SOLN NEBU 0.63 MG/3 ML NEB INH SCH ×6 (02:50→23:25)
[2017-08-17] MEDS: FUROSEMIDE INJ 10 MG/ML 4 ML VIAL IV SCH ×3 (04:00→22:02)
[2017-08-17] MEDS: THEOPHYLLINE 80 MG/15 ML SYRP GT SCH ×3 (06:10→22:04)
[2017-08-17 06:35] LABS: ALANINE AMINOTRANSFERASE 19 IU/L (0-55); ALBUMIN 2.1 g/dL (3.5-5.0); ALBUMIN/GLOBULIN RATIO 0.7 (0.8-2.0); ALKALINE PHOSPHATASE 54 IU/L (40-150); ANION GAP 11.1 mmol/L (8-16); BLOOD UREA NITROGEN 52 mg/dL (7-26); BUN/CREATININE RATIO 40 (6-25); CALCIUM 8.5 mg/dL (8.4-10.2); CARBON DIOXIDE 29 mmol/L (22-29); CHLORIDE 109 mmol/L (98-107); CREATININE, SERUM 1.29 mg/dL (0.72-1.25); EST GLOMERULAR FILTRATION RATE 56 ML/MIN (60-); GLUCOSE 185 mg/dL (74-118); POTASSIUM 3.1 mmol/L (3.5-5.1); SODIUM 146 mmol/L (136-145)
[2017-08-17] MEDS: METHYLPREDNISOLONE SOD SUCC 40 MG/ML VIAL IV SCH ×2 (09:58→22:02)
[2017-08-17] MEDS: ENOXAPARIN INJ 80 MG/0.8 ML SYR SC SCH ×2 (09:59→22:02)
[2017-08-17] MEDS ORDERED: SODIUM CHLORIDE 0.9% 250ML 250 ML ONE (09:59)
[2017-08-17] MEDS: AZITHROMYCIN 500MG/NS 250 ML 250 ML IV SCH (09:59)
--- NOTE | 2017-08-17 14:54 | Progress Note ---
DATE: August 17, 2017 CARDIOLOGY PROGRESS NOTE SUBJECTIVE: Intubated and sedated. Telemetry with sinus tachycardia. OBJECTIVE VITAL SIGNS: Temperature 97.6, heart rate 104, respiratory rate 20 on vent support. Blood pressure 109/76. O2 sat 94%. GENERAL: Intubated and sedated. Prolonged expiratory phase and decreased breath sounds and coarse rhonchi. CARDIOVASCULAR: Regular rate and rhythm. Normal S1 and S2. ABDOMEN: Soft. EXTREMITIES: Trace edema. CARDIOVASCULAR MEDICATIONS: Furosemide 40 mg IV q.8 hours. Lovenox 80 mg subcutaneous q.12 hours. LABORATORY DATA: Sodium 146, potassium 3.1, chloride 109, bicarbonate 29, BUN 52, creatinine 1.29. Glucose 185. Calcium 8.5. Bilirubin is less than 0.3. AST 18, ALT 19, alkaline phosphatase 54, total protein 5.2, albumin 2.1. ASSESSMENT: 1. Chronic obstructive pulmonary disease exacerbation. 2. Igwpd-zt-ezcqdly respiratory failure on ventilator support. 3. Acute right superficial femoral artery deep venous thrombosis. 4. Sinus tachycardia. 5. Peripheral arterial disease, status post revascularization.. 6. Mild coronary artery disease. 7. Smoker. 8. Hypertension. 9. Dyslipidemia. PLAN: 1. Continue Lovenox for newly diagnosed DVT. 2. Currently pressor requirements have improved. 3. No atrial arrhythmia observed so far on telemetry. Continue supportive care. Dopplers suggestive of severe aortoiliac disease, particularly to the right lower extremity. At a later date, can consider further evaluation. Conservative management for now. Job#: [id number]
[2017-08-17] MEDS ORDERED: POTASSIUM CHLORIDE 20MEQ/100ML 200 ML IV NR (16:30)
[2017-08-17] MEDS ORDERED: POTASSIUM CHLORIDE 100 ML IV NR (16:30)
[2017-08-17] MEDS: CEFTRIAXONE SOD 1 GM VIAL IV SCH (22:02)
[2017-08-17] MEDS: AMITRIPTYLINE HCL 25 MG TAB PO SCH (22:02)
[2017-08-18] VITALS (94 sets, daily range): BP systolic 68–166; BP diastolic 41–98
[2017-08-18] MEDS: METOPROLOL TARTRATE INJ 1 MG/ML VIAL IV SCH ×4 (02:00→20:12)
[2017-08-18] MEDS: IPRATROPIUM BROMIDE 0.02% 2.5 ML NEB NEB SCH ×6 (02:55→23:11)
[2017-08-18] MEDS: LEVALBUTEROL HCL SOLN NEBU 0.63 MG/3 ML NEB INH SCH ×6 (02:55→23:11)
[2017-08-18] MEDS: FUROSEMIDE INJ 10 MG/ML 4 ML VIAL IV SCH ×3 (04:00→12:00)
[2017-08-18] MEDS: MIDAZOLAM HCL 25 MG in SODIUM CHLORIDE 0.9% 50ML 45 ML IV PRN ×2 (05:23→15:28)
[2017-08-18 06:57] LABS: ALANINE AMINOTRANSFERASE 18 IU/L (0-55); ALBUMIN/GLOBULIN RATIO 0.6 (0.8-2.0); ALKALINE PHOSPHATASE 52 IU/L (40-150); ANION GAP 10.7 mmol/L (8-16); BLOOD UREA NITROGEN 57 mg/dL (7-26); BUN/CREATININE RATIO 53 (6-25); CALCIUM 8.4 mg/dL (8.4-10.2); CARBON DIOXIDE 31 mmol/L (22-29); CHLORIDE 101 mmol/L (98-107); CREATININE, SERUM 1.07 mg/dL (0.72-1.25); EST GLOMERULAR FILTRATION RATE > 60 ML/MIN (60-); GLUCOSE 161 mg/dL (74-118); POTASSIUM 3.7 mmol/L (3.5-5.1); SODIUM 139 mmol/L (136-145)
[2017-08-18] MEDS: NOREPINEPHRINE BITARTRATE/ NS 250 ML IV PRN (08:05)
[2017-08-18] MEDS: THEOPHYLLINE 80 MG/15 ML SYRP GT SCH ×3 (08:43→22:16)
[2017-08-18] MEDS: METHYLPREDNISOLONE SOD SUCC 40 MG/ML VIAL IV SCH ×2 (09:42→20:13)
[2017-08-18] MEDS: AZITHROMYCIN 500MG/NS 250 ML 250 ML IV SCH (09:43)
[2017-08-18] MEDS: ENOXAPARIN INJ 80 MG/0.8 ML SYR SC SCH ×2 (09:43→20:13)
[2017-08-18] MEDS ORDERED: DEXMEDETOMIDINE HCL 200 MCG in SODIUM CHLORIDE 0.9% 50ML 48 ML IV PRN (12:45)
[2017-08-18] MEDS: LORAZEPAM INJ 2 MG/ML VIAL IV PRN ×2 (15:12→22:16)
--- NOTE | 2017-08-18 15:21 | Progress Note ---
DATE: August 18, 2017 CARDIOLOGY PROGRESS NOTE SUBJECTIVE: Sedated, intubated. OBJECTIVE: VITAL SIGNS: Temperature 96.8, heart rate 80, respiratory rate 22, blood pressure 82/50, O2 sat 93% on vent support. GENERAL: Intubated and sedated. CHEST: Coarse breath sounds and prolonged expiratory phase. CARDIOVASCULAR: Regular rate and rhythm. Normal S1 and S2. ABDOMEN: Soft. EXTREMITIES: Trace edema. CARDIOVASCULAR MEDICATIONS 1. Metoprolol titrate 2.5 mg q.4 hours IV. 2. Furosemide 40 mg IV q.8 hours, on hold this morning. LABORATORY DATA: Sodium 136, potassium 3.8, chloride 101, bicarbonate 31, BUN 57, creatinine 1.07. Glucose 161, magnesium 1.7, calcium 8.4. Total protein is 5.2, albumin is 2. ASSESSMENT 1. Chronic obstructive pulmonary disease exacerbation. 2. Tlfmw-lv-zjqqwtq respiratory failure, on vent support. 3. Acute right superficial femoral vein deep venous thrombosis. 4. Intermittent sinus tachycardia. 5. Peripheral arterial disease, status post revascularization. 6. Mild coronary artery disease on cath. 7. Smoker. 8. Hypertension. 9. Dyslipidemia. RECOMMENDATIONS: Decrease frequency of beta-mary and use holding parameters. Hold diuretics for today given low blood pressure reads. Arterial Dopplers concerning for right lower extremity aortoiliac disease, stable lower extremity on exam; however, continue medical management for now. Job#: [id number] KT
[2017-08-18] MEDS: DEXMEDETOMIDINE HCL 200 MCG in SODIUM CHLORIDE 0.9% 50ML 48 ML IV PRN (20:11)
[2017-08-18] MEDS: CEFTRIAXONE SOD 1 GM VIAL IV SCH (20:12)
[2017-08-18] MEDS: AMITRIPTYLINE HCL 25 MG TAB PO SCH (20:13)
[2017-08-18] MEDS: HYDROMORPHONE 100 ML IV PRN (22:30)
[2017-08-19] VITALS (111 sets, daily range): BP systolic 65–171; BP diastolic 47–103
[2017-08-19] MEDS: DEXMEDETOMIDINE HCL 200 MCG in SODIUM CHLORIDE 0.9% 50ML 48 ML IV PRN ×4 (01:55→22:00)
[2017-08-19] MEDS: HYDROMORPHONE 100 ML IV PRN (02:00)
[2017-08-19] MEDS: IPRATROPIUM BROMIDE 0.02% 2.5 ML NEB NEB SCH ×6 (02:31→22:55)
[2017-08-19] MEDS: LEVALBUTEROL HCL SOLN NEBU 0.63 MG/3 ML NEB INH SCH ×6 (02:31→22:55)
[2017-08-19] MEDS: LORAZEPAM INJ 2 MG/ML VIAL IV PRN ×2 (04:26→10:36)
[2017-08-19] MEDS: THEOPHYLLINE 80 MG/15 ML SYRP GT SCH ×3 (05:07→22:22)
--- NOTE | 2017-08-19 05:59 | Diagnostic Imaging Report ---
EXAM: CHEST SINGLE (PORTABLE), AP 1 view INDICATION: Intubated COMPARISON: AP view of the chest August 14, 2017 FINDINGS: LINES/TUBES: The endotracheal tube terminates 3 cm above the dustin. Stable position of left approach PICC and partially visualized nasal/orogastric tube. LUNGS: Emphysematous changes with large bulla in the right upper lung. PLEURA: No effusions or pneumothorax. HEART AND MEDIASTINUM: Stable appearance. BONES AND SOFT TISSUES: No acute findings. IMPRESSION: No interval change. Signed by: Dr. Rosita Eastman M.D. on 08/19/2017 5:55 AM
[2017-08-19 06:19] LABS: BASOPHILS % 0.2 % (0.0-1.0); HEMATOCRIT 42.7 % (38.2-49.6); HEMOGLOBIN 14.1 g/dL (14.0-18.0); LYMPHOCYTES # (AUTO) 0.4 (1.0-3.2); LYMPHOCYTES % 2.6 % (18.0-39.1); MEAN CORPUSCULAR HEMOGLOBIN 28.6 pg (28-32); MEAN CORPUSCULAR VOLUME 86.6 fL (81-99); MONOCYTES # (AUTO) 1.2 (0.2-0.8); MONOCYTES % 9.1 % (4.4-11.3); NEUTROPHILS # (AUTO) 11.5 (2.1-6.9); NEUTROPHILS % 86.7 % (38.7-80.0); PLATELET COUNT 274 x10e3/uL (140-360); RED BLOOD COUNT 4.93 x10e6/uL (4.3-5.7)
[2017-08-19 06:39] LABS: ALANINE AMINOTRANSFERASE 36 IU/L (0-55); ALBUMIN 2.2 g/dL (3.5-5.0); ALBUMIN/GLOBULIN RATIO 0.6 (0.8-2.0); ALKALINE PHOSPHATASE 61 IU/L (40-150); BLOOD UREA NITROGEN 54 mg/dL (7-26); BUN/CREATININE RATIO 55 (6-25); CALCIUM 8.6 mg/dL (8.4-10.2); CARBON DIOXIDE 34 mmol/L (22-29); CHLORIDE 96 mmol/L (98-107); CREATININE, SERUM 0.98 mg/dL (0.72-1.25); EST GLOMERULAR FILTRATION RATE > 60 ML/MIN (60-); GLUCOSE 146 mg/dL (74-118); SODIUM 136 mmol/L (136-145)
[2017-08-19] MEDS: METOPROLOL TARTRATE INJ 1 MG/ML VIAL IV SCH ×2 (09:00→13:28)
[2017-08-19] MEDS: METHYLPREDNISOLONE SOD SUCC 40 MG/ML VIAL IV SCH ×3 (09:55→22:22)
[2017-08-19] MEDS: ENOXAPARIN INJ 80 MG/0.8 ML SYR SC SCH ×2 (09:55→20:54)
[2017-08-19] MEDS: AZITHROMYCIN 500MG/NS 250 ML 250 ML IV SCH (09:55)
--- NOTE | 2017-08-19 11:37 | Progress Note ---
DATE: August 19, 2017 CARDIOLOGY PROGRESS NOTE SUBJECTIVE: Patient remains intubated and sedated. He is on a spontaneous breathing trial; however, he is extremely tachypneic and tachycardic at this time. OBJECTIVE: VITAL SIGNS: Temperature 99 degrees, pulse 130, respiratory rate 20, blood pressure 139/84, oxygen saturation 94% on mechanical ventilation. GENERAL: Intubated and sedated, mildly distressed. LUNGS: Poor air movement, tachypneic. CARDIOVASCULAR: Tachycardic, but regular. Normal S1 and S2. ABDOMEN: Soft. EXTREMITIES: No edema. CARDIAC MEDICATIONS: Enoxaparin 80 mg subcu q.12 hours. LABS: WBC 13.28, hemoglobin 14.1, hematocrit 42.7, platelets 274. Sodium 136, potassium 4, chloride 96, CO2 of 34, BUN 54, and creatinine 0.98. Chest x-ray; no interval change. TELEMETRY: Sinus tachycardia. IMPRESSION 1. Chronic obstructive pulmonary disease exacerbation. 2. Rbtyi-kn-opqejjg respiratory failure, on mechanical ventilation. 3. Acute right superficial femoral vein deep venous thrombosis. 4. Sinus tachycardia. 5. Peripheral arterial disease, status post revascularization. 6. Mild coronary artery disease on cardiac catheterization. 7. Tobacco abuse. 8. Hypertension. 9. Dyslipidemia. RECOMMENDATIONS: Continue current cardiac medications. Bilateral arterial Dopplers were concerning for aortoiliac disease on the right; however, limb is warm without wounds. Plan for further evaluation as outpatient once he is recovered from current illness. Sinus tachycardia is a physiologic response to the patient's current illness and respiratory distress. Continue to monitor. Obtain EKG. Thank you for this consult. We will continue to follow. Job#: [id number] KT
[2017-08-19] MEDS: QUETIAPINE FUMARATE 25 MG TAB PO SCH (15:02)
[2017-08-19 15:49] LABS: ABG HCO3 35 mmol/L (23-28); ABG PCO2 48 mmHg (41-51); ABG PH 7.47 (7.31-7.41); ABG PO2 80 mmHg (80-105)
--- NOTE | 2017-08-19 16:50 | Diagnostic Imaging Report ---
PROCEDURE: A single AP view of the chest. COMPARISON: Same day at 5:30 AM INDICATIONS: VENTILATION FINDINGS: Lines/tubes: Stable endotracheal tube, left PICC, and nasogastric tube. Lungs: Hyperinflated lungs. Unchanged bilateral upper lung leiva bullous changes, right more than and left. There is bilateral lower lung field hazy opacities, unchanged from prior exam. Pleura: There is no pleural effusion or pneumothorax. Heart and mediastinum: The heart and the mediastinum are unremarkable. Bones: No acute bony abnormality. Partially visualized cervical spine fusion hardware. IMPRESSION: No significant interval change from prior exam. Dictated by: Alli Morrison M.D. on 08/19/2017 at 16:49 Electronically approved by: Alli Morrison M.D. on 08/19/2017 at 16:49
[2017-08-19] MEDS: LORAZEPAM INJ 2 MG/ML VIAL IV SCH (17:24)
[2017-08-19] MEDS: ACETYLCYSTEINE 20% INHAL SOLN 30 ML VIAL INH SCH (19:04)
[2017-08-19] MEDS: BUDESONIDE 0.5MG/2 ML NEB INH SCH (19:04)
[2017-08-19] MEDS: VANCOMYCIN 1GM/NS 250 ML 250 ML IV SCH (19:23)
[2017-08-19] MEDS ORDERED: DEXMEDETOMIDINE HCL 1,000 MCG in SODIUM CHLORIDE 0.9% 250ML 250 ML IV SCH (19:30)
[2017-08-19] MEDS: PIPER-TAZ 3.375 GM 50 ML IV SCH (20:52)
[2017-08-19] MEDS: AMITRIPTYLINE HCL 25 MG TAB PO SCH (20:54)
[2017-08-19] MEDS: NYSTATIN SUSPENSION 5 ML UDC PO SCH (22:22)
[2017-08-20] VITALS (98 sets, daily range): BP systolic 77–173; BP diastolic 53–112
[2017-08-20] MEDS: LORAZEPAM INJ 2 MG/ML VIAL IV SCH ×4 (00:06→17:56)
[2017-08-20] MEDS: PIPER-TAZ 3.375 GM 50 ML IV SCH ×4 (00:17→17:56)
[2017-08-20] MEDS: LEVALBUTEROL HCL SOLN NEBU 0.63 MG/3 ML NEB INH SCH ×6 (02:03→23:30)
[2017-08-20] MEDS: IPRATROPIUM BROMIDE 0.02% 2.5 ML NEB NEB SCH ×6 (02:03→23:30)
[2017-08-20] MEDS: ACETYLCYSTEINE 20% INHAL SOLN 30 ML VIAL INH SCH ×4 (02:05→19:30)
[2017-08-20] MEDS: DEXMEDETOMIDINE HCL 200 MCG in SODIUM CHLORIDE 0.9% 50ML 48 ML IV PRN ×2 (02:12→06:30)
[2017-08-20] MEDS: METOPROLOL TARTRATE INJ 1 MG/ML VIAL IV SCH ×2 (03:30→21:00)
[2017-08-20] MEDS: METHYLPREDNISOLONE SOD SUCC 40 MG/ML VIAL IV SCH ×3 (05:37→22:54)
[2017-08-20] MEDS: NYSTATIN SUSPENSION 5 ML UDC PO SCH ×3 (05:37→22:54)
[2017-08-20] MEDS: THEOPHYLLINE 80 MG/15 ML SYRP GT SCH ×3 (06:41→22:54)
[2017-08-20] MEDS: VANCOMYCIN 1GM/NS 250 ML 250 ML IV SCH ×2 (06:42→18:45)
[2017-08-20] MEDS: BUDESONIDE 0.5MG/2 ML NEB INH SCH ×2 (07:00→19:30)
--- NOTE | 2017-08-20 08:45 | Diagnostic Imaging Report ---
PROCEDURE: A single AP view of the chest. COMPARISON: Patients [facility], DX, CHEST SINGLE (PORTABLE), 08/19/2017, 15:48. INDICATIONS: INTUBATED, COPD FINDINGS: Lines/tubes: Stable endotracheal tube, left PICC and NG tube. Lungs: Hyperexpansion with bilateral apical bullous disease; right greater than left appear stable. Basilar opacities are unchanged. Pleura: There is no pleural effusion or pneumothorax. Heart and mediastinum: The heart and the mediastinum are unremarkable. Bones: No acute bony abnormality. Partially visualized cervical plate. IMPRESSION: Findings of COPD without significant interval change. Cesar Dunlap D.O. Dictated by: Cesar Dunlap D.O. on 08/20/2017 at 8:45 Electronically approved by: Cesar Dunlap D.O. on 08/20/2017 at 8:45
[2017-08-20] MEDS ORDERED: AMIODARONE HCL INJ 150MG/3ML ONE (09:39)
[2017-08-20] MEDS: AZITHROMYCIN 500MG/NS 250 ML 250 ML IV SCH (10:04)
[2017-08-20] MEDS: QUETIAPINE FUMARATE 25 MG TAB PO SCH ×2 (10:04→17:11)
[2017-08-20] MEDS: ENOXAPARIN INJ 80 MG/0.8 ML SYR SC SCH ×2 (10:04→22:54)
[2017-08-20 10:14] LABS: ABG HCO3 36 mmol/L (23-28); ABG PCO2 76 mmHg (41-51); ABG PH 7.28 (7.31-7.41); ABG PO2 60 mmHg (80-105)
[2017-08-20] MEDS ORDERED: LORAZEPAM INJ 2 MG/ML VIAL IV ONE (10:20)
--- NOTE | 2017-08-20 13:56 | Diagnostic Imaging Report ---
PROCEDURE: A single AP view of the chest. COMPARISON: Patients [facility], DX, CHEST SINGLE (PORTABLE), 08/20/2017, 5:29. INDICATIONS: VENTILATION FINDINGS: See impression. IMPRESSION: 1. endotracheal tube has distal tip projecting approximately 8.1 cm above the dustin. Unchanged enteric tube. 2. Hyperinflated lungs with bilateral apical bullous disease, right greater than left, stable. 3. No significant interval change in bibasilar opacities, suggestive of pneumonia or aspiration. 4. Cardiomediastinal silhouette is unremarkable. Pulmonary vasculature is normal.. Dennis Fleming M.D. Dictated by: Dennis Fleming M.D. on 08/20/2017 at 13:56 Electronically approved by: Dennis Fleming M.D. on 08/20/2017 at 13:56
--- NOTE | 2017-08-20 16:59 | Progress Note ---
DATE: August 20, 2017 CARDIOLOGY PROGRESS NOTE SUBJECTIVE: Patient remains intubated and sedated. Attempt was made at SBT earlier this morning. However, the patient was unable to tolerate this. OBJECTIVE VITAL SIGNS: Temperature 98.5 degrees, pulse 105, respiratory rate 18, blood pressure 147/97, oxygen saturation 92% on mechanical ventilation. GENERAL: Intubated and sedated, in no acute distress. LUNGS: Poor air movement. CARDIOVASCULAR: Tachycardic, but regular. Normal S1 and S2. ABDOMEN: Soft. EXTREMITIES: No edema. CARDIAC MEDICATIONS 1. Enoxaparin 80 mg subcutaneous q.12 h. 2. Metoprolol tartrate 2.5 mg IV q.12 h. LABS: ABG 7.28, pCO2 76, pO2 60, oxygen saturation 85%. TELEMETRY: Sinus tachycardia. IMPRESSION 1. Chronic obstructive pulmonary disease exacerbation. 2. Qefpq-qj-mxqyydq respiratory failure, on mechanical ventilation. 3. Acute right superficial femoral vein deep venous thrombosis. 4. Sinus tachycardia. 5. Peripheral arterial disease, status post revascularization. 6. Mild coronary artery disease on cardiac catheterization. 7. Tobacco abuse. 8. Hypertension. 9. Dyslipidemia. RECOMMENDATIONS: Continue current cardiac medications. Bilateral lower extremity arterial Dopplers were concerning for aortoiliac disease on the right; however, limb is warm without any wounds. Plan for further evaluation as an outpatient once he has recovered from his current illness. Sinus tachycardia is a physiologic response to the patient's current illness, continue to monitor on telemetry. Ventilator management per pulmonary. Thank you for this consult. We will continue to follow. Job#: [id number]
[2017-08-20] MEDS ORDERED: PROPOFOL IV EMULSION 10MG/ML 100 ML IV SCH (19:00)
[2017-08-20] MEDS: AMITRIPTYLINE HCL 25 MG TAB PO SCH (22:54)
[2017-08-20] MEDS ORDERED: PROPOFOL IV EMULSION 10MG/ML 100 ML IV PRN (23:30)
[2017-08-21] VITALS (61 sets, daily range): BP systolic 79–181; BP diastolic 55–118
[2017-08-21] MEDS: PIPER-TAZ 3.375 GM 50 ML IV SCH ×4 (00:08→18:06)
[2017-08-21] MEDS: LORAZEPAM INJ 2 MG/ML VIAL IV SCH ×6 (00:08→21:27)
[2017-08-21] MEDS: DEXMEDETOMIDINE HCL 200 MCG in SODIUM CHLORIDE 0.9% 50ML 48 ML IV PRN ×5 (01:10→21:45)
[2017-08-21] MEDS: IPRATROPIUM BROMIDE 0.02% 2.5 ML NEB NEB SCH ×6 (02:40→23:00)
[2017-08-21] MEDS: LEVALBUTEROL HCL SOLN NEBU 0.63 MG/3 ML NEB INH SCH ×6 (02:40→23:00)
[2017-08-21] MEDS: ACETYLCYSTEINE 20% INHAL SOLN 30 ML VIAL INH SCH ×4 (02:40→19:00)
[2017-08-21] MEDS: NOREPINEPHRINE BITARTRATE/ NS 250 ML IV PRN (02:46)
[2017-08-21] MEDS: NYSTATIN SUSPENSION 5 ML UDC PO SCH ×3 (05:24→21:27)
[2017-08-21] MEDS: THEOPHYLLINE 80 MG/15 ML SYRP GT SCH ×2 (05:24→13:37)
[2017-08-21] MEDS: METHYLPREDNISOLONE SOD SUCC 40 MG/ML VIAL IV SCH ×3 (05:24→21:27)
[2017-08-21 05:53] LABS: BASOPHILS % 0.2 % (0.0-1.0); HEMATOCRIT 43.9 % (38.2-49.6); HEMOGLOBIN 14.1 g/dL (14.0-18.0); LYMPHOCYTES # (AUTO) 0.5 (1.0-3.2); LYMPHOCYTES % 2.7 % (18.0-39.1); MEAN CORPUSCULAR HEMOGLOBIN 28.5 pg (28-32); MEAN CORPUSCULAR HGB CONC 32.1 g/dL (31-35); MEAN CORPUSCULAR VOLUME 88.9 fL (81-99); MONOCYTES # (AUTO) 1.3 (0.2-0.8); MONOCYTES % 8.1 % (4.4-11.3); NEUTROPHILS # (AUTO) 14.3 (2.1-6.9); NEUTROPHILS % 87.5 % (38.7-80.0); PLATELET COUNT 302 x10e3/uL (140-360); RED BLOOD COUNT 4.94 x10e6/uL (4.3-5.7); RED CELL DISTRIBUTION WIDTH 15.1 % (11.7-14.4)
[2017-08-21 06:17] LABS: ALANINE AMINOTRANSFERASE 48 IU/L (0-55); ALBUMIN 2.3 g/dL (3.5-5.0); ALBUMIN/GLOBULIN RATIO 0.6 (0.8-2.0); ALKALINE PHOSPHATASE 65 IU/L (40-150); ANION GAP 11.4 mmol/L (8-16); BLOOD UREA NITROGEN 45 mg/dL (7-26); BUN/CREATININE RATIO 48 (6-25); CALCIUM 8.9 mg/dL (8.4-10.2); CARBON DIOXIDE 31 mmol/L (22-29); CHLORIDE 103 mmol/L (98-107); CREATININE, SERUM 0.94 mg/dL (0.72-1.25); EST GLOMERULAR FILTRATION RATE > 60 ML/MIN (60-); GLUCOSE 156 mg/dL (74-118); POTASSIUM 4.4 mmol/L (3.5-5.1); SODIUM 141 mmol/L (136-145)
[2017-08-21] MEDS: HYDROMORPHONE 100 ML IV PRN (06:24)
--- NOTE | 2017-08-21 06:40 | Diagnostic Imaging Report ---
EXAMINATION: CHEST SINGLE (PORTABLE) INDICATION: Intubated COMPARISON: 08/20/2017 FINDINGS: TUBES and LINES: The visualized endotracheal tube with tip 8 cm above the dustin. NG tube is again noted. The left PICC line with tip overlying the proximal SVC. LUNGS: Lungs are well inflated. Multiple areas of patchy airspace opacity are unchanged predominantly in the right mid and lower lungs. Stable bullous changes in the right upper lobe . PLEURA: No pleural effusion or pneumothorax. HEART AND MEDIASTINUM: The cardiomediastinal silhouette is unremarkable. There are atherosclerotic calcifications within the aorta. BONES AND SOFT TISSUES: No acute osseous lesion. Soft tissues are unremarkable. UPPER ABDOMEN: No free air under the diaphragm. IMPRESSION: 1. Endotracheal tube, NG tube and left upper extremity PICC line are stable. 2. Confluent opacities in the right midlung and bilateral lower lobes right greater than left suspicious for infection. Signed by: Dr. Arturo Cerrato M.D. on 08/21/2017 6:36 AM
[2017-08-21] MEDS: BUDESONIDE 0.5MG/2 ML NEB INH SCH ×2 (07:00→19:00)
[2017-08-21] MEDS: VANCOMYCIN 1GM/NS 250 ML 250 ML IV SCH ×2 (07:29→20:09)
[2017-08-21] MEDS: QUETIAPINE FUMARATE 25 MG TAB PO SCH ×2 (08:46→17:00)
[2017-08-21] MEDS: AZITHROMYCIN 500MG/NS 250 ML 250 ML IV SCH (08:46)
[2017-08-21] MEDS: ENOXAPARIN INJ 80 MG/0.8 ML SYR SC SCH ×2 (09:00→20:39)
--- NOTE | 2017-08-21 09:25 | Progress Note ---
DATE: August 21, 2017 CARDIOLOGY PROGRESS NOTE SUBJECTIVE: The patient remains intubated and sedated. He is on Levophed 4 mcg per minute. OBJECTIVE VITALS: Temperature 97.5 degrees, pulse 77, respiratory rate 21, blood pressure 101/74, oxygen saturation 96% on mechanical ventilation. GENERAL: Intubated, sedated and in no acute distress. LUNGS: Poor air movement. Appears slightly desynchronous with the vent. CARDIOVASCULAR: Tachycardic but regular. Normal S1 and S2. ABDOMEN: Soft. EXTREMITIES: No edema. CARDIAC MEDICATIONS 1. Levophed 4 mcg per minute. 2. Enoxaparin 80 mg subcutaneous q.12 h. 3. Metoprolol tartrate 2.5 mg IV q.12 h. LABS: WBC 16.38, hemoglobin 14.1, hematocrit 43.9, and platelets 302,000. Sodium 141, potassium 4.4, chloride 103, CO2 31, BUN 45, creatinine 0.94. Telemetry is sinus tachycardia. IMPRESSION 1. Chronic obstructive pulmonary disease exacerbation. 2. Yxwcc-vm-jqhicel respiratory failure, on mechanical ventilation. 3. Acute right superficial vein deep venous thrombosis. 4. Sinus tachycardia. 5. Peripheral arterial disease, status post revascularization. 6. Mild coronary artery disease on cardiac cath. 7. Tobacco abuse. 8. Hypertension. 9. Dyslipidemia. RECOMMENDATIONS: Continue current cardiac medications. Bilateral lower extremity Dopplers were concerning for aortoiliac disease on the right. However, the limb is warm without wounds. Plan for further evaluation as an outpatient once he recovers from his current illness. The patient is in sinus tachycardia with decreased ventricular response to the patient's current illness. Continue to monitor on telemetry. Avoid beta blockers or calcium channel blockers for rate control as he is currently requiring Levophed for blood pressure support. Ventilator management per pulmonary. Antibiotics per primary service given the patient's leukocytosis and pressor requirement. Thank you for this consult. We will continue to follow. Job#: [id number] YOMAIRA
[2017-08-21] MEDS: METOPROLOL TARTRATE INJ 1 MG/ML VIAL IV SCH ×2 (09:38→20:39)
[2017-08-21] MEDS ORDERED: MORPHINE SULFATE 2 MG/ML SYR ONE (16:02)
[2017-08-21] MEDS: MORPHINE SULFATE 2 MG/ML SYR IV PRN ×3 (16:15→21:50)
[2017-08-22] VITALS (30 sets, daily range): BP systolic 132–180; BP diastolic 79–114
[2017-08-22] MEDS: PIPER-TAZ 3.375 GM 50 ML IV SCH ×4 (00:31→17:55)
[2017-08-22] MEDS: ACETYLCYSTEINE 20% INHAL SOLN 30 ML VIAL INH SCH (01:00)
[2017-08-22] MEDS: LORAZEPAM INJ 2 MG/ML VIAL IV SCH ×6 (02:00→21:19)
[2017-08-22] MEDS: MORPHINE SULFATE 2 MG/ML SYR IV PRN ×7 (02:44→22:47)
[2017-08-22] MEDS: LEVALBUTEROL HCL SOLN NEBU 0.63 MG/3 ML NEB INH SCH ×6 (03:00→22:43)
[2017-08-22] MEDS: IPRATROPIUM BROMIDE 0.02% 2.5 ML NEB NEB SCH ×6 (03:00→22:43)
[2017-08-22] MEDS: METHYLPREDNISOLONE SOD SUCC 40 MG/ML VIAL IV SCH ×3 (05:40→21:19)
[2017-08-22] MEDS: NYSTATIN SUSPENSION 5 ML UDC PO SCH ×3 (05:40→21:19)
[2017-08-22] MEDS: BUDESONIDE 0.5MG/2 ML NEB INH SCH ×2 (07:00→19:00)
[2017-08-22] MEDS: VANCOMYCIN 1GM/NS 250 ML 250 ML IV SCH ×2 (08:14→20:04)
[2017-08-22] MEDS: AZITHROMYCIN 500MG/NS 250 ML 250 ML IV SCH (08:17)
[2017-08-22] MEDS: METOPROLOL TARTRATE INJ 1 MG/ML VIAL IV SCH ×2 (08:17→21:19)
[2017-08-22] MEDS: QUETIAPINE FUMARATE 25 MG TAB PO SCH ×2 (09:00→17:00)
[2017-08-22] MEDS: ENOXAPARIN INJ 80 MG/0.8 ML SYR SC SCH ×2 (09:54→21:19)
[2017-08-22] MEDS ORDERED: FENTANYL 50 MCG/HR PATCH TOP SCH (10:00)
--- NOTE | 2017-08-22 12:26 | Progress Note ---
DATE: August 22, 2017 CARDIOLOGY PROGRESS NOTE SUBJECTIVE: The patient remains on sedation. He was successfully extubated yesterday. However, he is not very interactive and appears mildly distressed and is quite tachypneic. OBJECTIVE VITALS: Temperature 97.7 degrees, pulse 88, respiratory rate 28, blood pressure 147/84, oxygen saturation 94% on 5 L nasal cannula. GENERAL: Mildly distressed, tachypneic. LUNGS: Poor air movement. No wheezes or crackles. CARDIOVASCULAR: Tachycardic but regular. Normal S1 and S2. ABDOMEN: Soft. EXTREMITIES: No edema. CARDIAC MEDICATIONS 1. Enoxaparin 80 mg subcutaneous q.12 h. 2. Metoprolol tartrate 2.5 mg IV q.12 h. LABS: None today. TELEMETRY: Sinus tachycardia. IMPRESSION 1. Chronic obstructive pulmonary disease exacerbation. 2. Odjmp-ia-xftioma respiratory failure. 3. Acute right superficial vein deep venous thrombosis. 4. Sinus tachycardia. 5. Peripheral arterial disease, status post revascularization. 6. Mild coronary artery disease on cardiac catheterization. 7. Tobacco abuse. 8. Hypertension. 9. Dyslipidemia. RECOMMENDATIONS: Continue current cardiac medications. Bilateral lower extremity arterial Dopplers were concerning for aortoiliac disease on the right. However, the limb is warm without wounds. Plan for further evaluation as an outpatient once he recovers from his current illness. The patient's sinus tachycardia is a physiologic response to the patient's current illness. Continue to monitor on telemetry. Defer management of COPD to pulmonary. Antibiotics per primary service. Thank you for this consult. We will continue to follow. Job#: [id number]
[2017-08-22] MEDS ORDERED: SIMETHICONE 80 MG CHEW PO PRN (12:30)
[2017-08-22] MEDS ORDERED: SIMETHICONE 80 MG CHEW ONE (12:37)
[2017-08-23] VITALS (27 sets, daily range): BP systolic 130–167; BP diastolic 75–112
[2017-08-23] MEDS: PIPER-TAZ 3.375 GM 50 ML IV SCH ×4 (00:43→17:38)
[2017-08-23] MEDS: MORPHINE SULFATE 2 MG/ML SYR IV PRN ×6 (01:39→20:48)
[2017-08-23] MEDS: IPRATROPIUM BROMIDE 0.02% 2.5 ML NEB NEB SCH ×7 (02:24→23:45)
[2017-08-23] MEDS: LEVALBUTEROL HCL SOLN NEBU 0.63 MG/3 ML NEB INH SCH ×7 (02:24→23:45)
[2017-08-23] MEDS: LORAZEPAM INJ 2 MG/ML VIAL IV SCH ×7 (02:32→21:50)
[2017-08-23] MEDS: METHYLPREDNISOLONE SOD SUCC 40 MG/ML VIAL IV SCH ×3 (05:50→22:25)
[2017-08-23] MEDS: NYSTATIN SUSPENSION 5 ML UDC PO SCH ×3 (05:50→22:25)
[2017-08-23] MEDS: BUDESONIDE 0.5MG/2 ML NEB INH SCH ×2 (07:00→19:15)
[2017-08-23] MEDS: VANCOMYCIN 1GM/NS 250 ML 250 ML IV SCH ×2 (07:00→18:10)
[2017-08-23] MEDS: QUETIAPINE FUMARATE 25 MG TAB PO SCH ×2 (09:00→16:47)
[2017-08-23 10:11] LABS: BASOPHILS % 0.3 % (0.0-1.0); HEMATOCRIT 49.1 % (38.2-49.6); HEMOGLOBIN 16.4 g/dL (14.0-18.0); LYMPHOCYTES # (AUTO) 0.7 (1.0-3.2); LYMPHOCYTES % 4.5 % (18.0-39.1); MEAN CORPUSCULAR HEMOGLOBIN 29.1 pg (28-32); MEAN CORPUSCULAR HGB CONC 33.4 g/dL (31-35); MEAN CORPUSCULAR VOLUME 87.1 fL (81-99); MONOCYTES # (AUTO) 0.8 (0.2-0.8); MONOCYTES % 5.4 % (4.4-11.3); NEUTROPHILS # (AUTO) 12.8 (2.1-6.9); NEUTROPHILS % 87.6 % (38.7-80.0); PLATELET COUNT 355 x10e3/uL (140-360); RED BLOOD COUNT 5.64 x10e6/uL (4.3-5.7); RED CELL DISTRIBUTION WIDTH 14.4 % (11.7-14.4)
[2017-08-23 10:28] LABS: ANION GAP 16.7 mmol/L (8-16); BLOOD UREA NITROGEN 44 mg/dL (7-26); BUN/CREATININE RATIO 49 (6-25); CALCIUM 9.3 mg/dL (8.4-10.2); CARBON DIOXIDE 29 mmol/L (22-29); CHLORIDE 102 mmol/L (98-107); CREATININE, SERUM 0.89 mg/dL (0.72-1.25); EST GLOMERULAR FILTRATION RATE > 60 ML/MIN (60-); GLUCOSE 121 mg/dL (74-118); POTASSIUM 5.7 mmol/L (3.5-5.1); SODIUM 142 mmol/L (136-145)
[2017-08-23] MEDS: METOPROLOL TARTRATE INJ 1 MG/ML VIAL IV SCH ×2 (11:02→20:42)
--- NOTE | 2017-08-23 12:29 | Diagnostic Imaging Report ---
EXAMINATION: CHEST SINGLE (PORTABLE) INDICATION: \S\COPD exacerbation \S\[id number] \S\1140 \S\Y COMPARISON: 08/21/2017 FINDINGS: AP view TUBES and LINES: Previously seen endotracheal and nasogastric tubes are removed. Unchanged left PICC. LUNGS: Redemonstration of hyperinflated lungs with upper lung field bullous changes and areas of mid to lower lung field airspace opacities, especially on the right side. PLEURA: No pleural effusion or pneumothorax. HEART AND MEDIASTINUM: The cardiomediastinal silhouette is unremarkable. BONES AND SOFT TISSUES: No acute osseous lesion. Soft tissues are unremarkable. UPPER ABDOMEN: No free air under the diaphragm. IMPRESSION: No interval change from prior exam. Unchanged mid to lower lung field opacities, especially on the right side, suspicious for infectious process. Emphysematous changes. Signed by: Dr. Alli Morrison MD on 08/23/2017 12:26 PM
[2017-08-23] MEDS: SOD POLYSTYRENE SULFONATE SUSP 15 GM/60 ML BTL PR ONE ×2 (13:02→17:52)
[2017-08-23] MEDS ORDERED: LORAZEPAM INJ 2 MG/ML VIAL IV SCH ×2 (15:00→17:00)
--- NOTE | 2017-08-23 15:08 | Progress Note ---
DATE: August 23, 2017 CARDIOLOGY PROGRESS NOTE SUBJECTIVE: Patient is not very interactive. He had severe respiratory distress while receiving a bath. Complains of chest pain and is visibly dyspneic. OBJECTIVE VITAL SIGNS: Temperature 98.3 degrees, pulse 70, respiratory rate 20, blood pressure 139/98, oxygen saturation 95% on 5 L nasal cannula. GENERAL: Moderately distressed, visibly tachypneic. LUNGS: Poor air movement. No wheezes or crackles. CARDIOVASCULAR: Tachycardic, but regular. Normal S1 and S2. No murmur. ABDOMEN: Soft. EXTREMITIES: No edema. CARDIAC MEDICATIONS: Metoprolol 2.5 mg IV q.12 hours. LABS: WBC 14.56, hemoglobin 16.4, hematocrit 49.1, platelets 355. Sodium 142, potassium 5.7, chloride 102, CO2 of 29, BUN 44, creatinine 0.89. TELEMETRY: Sinus tachycardia. IMPRESSION 1. Chronic obstructive pulmonary disease exacerbation. 2. Xlpaj-ta-[id number] respiratory failure. 3. Acute right superficial vein deep venous thrombosis. 4. Sinus tachycardia. 5. Peripheral arterial disease, status post revascularization. 6. Mild coronary artery disease on cardiac catheterization. 7. Tobacco abuse. 8. Hypertension. 9. Dyslipidemia. RECOMMENDATIONS: Continue current cardiac medications. Enoxaparin was stopped, which is indicated due to his acute DVT; however, it appears family is considering hospice. If they decide not to proceed, he will not to be restarted on the enoxaparin. Bilateral lower extremity arterial Dopplers were concerning for aortoiliac disease on the right; however, limb is warm without wounds. No further evaluation is indicated at this time. The patient's sinus tachycardia is a physiologic response to his current respiratory distress. Monitor on telemetry. Patient's prognosis is poor. Hospice is being discussed. Thank you for this consult. We will continue to follow. Job#: [id number] KT
[2017-08-23] MEDS ORDERED: LORAZEPAM INJ 2 MG/ML VIAL IV PRN (17:00)
[2017-08-23] MEDS: ENOXAPARIN SOD INJ 40 MG/0.4 ML SYR SC SCH (20:42)
[2017-08-23] MEDS ORDERED: SODIUM CHLORIDE 0.9% 250ML 250 ML ONE (23:56)
[2017-08-24] VITALS (7 sets, daily range): BP systolic 127–149; BP diastolic 86–94
[2017-08-24] MEDS: PIPER-TAZ 3.375 GM 50 ML IV SCH ×3 (00:21→12:00)
[2017-08-24] MEDS: LORAZEPAM INJ 2 MG/ML VIAL IV SCH ×12 (00:21→21:43)
[2017-08-24] MEDS: LEVALBUTEROL HCL SOLN NEBU 0.63 MG/3 ML NEB INH SCH ×6 (00:45→19:00)
[2017-08-24] MEDS: IPRATROPIUM BROMIDE 0.02% 2.5 ML NEB NEB SCH ×6 (00:45→19:00)
[2017-08-24] MEDS: MORPHINE SULFATE 2 MG/ML SYR IV PRN ×5 (04:09→17:15)
[2017-08-24] MEDS: METHYLPREDNISOLONE SOD SUCC 40 MG/ML VIAL IV SCH (05:53)
[2017-08-24] MEDS: NYSTATIN SUSPENSION 5 ML UDC PO SCH ×3 (05:53→21:45)
[2017-08-24] MEDS: ENOXAPARIN SOD INJ 40 MG/0.4 ML SYR SC SCH ×2 (09:00→21:00)
[2017-08-24] MEDS: METOPROLOL TARTRATE INJ 1 MG/ML VIAL IV SCH (09:00)
[2017-08-24] MEDS: QUETIAPINE FUMARATE 25 MG TAB PO SCH ×2 (09:00→17:00)
[2017-08-24] MEDS: BUDESONIDE 0.5MG/2 ML NEB INH SCH ×2 (11:20→19:00)
[2017-08-24] MEDS: HYDROMORPHONE 2MG/ML INJ IV SCH ×2 (19:36→21:44)
[2017-08-25 00:50] VITALS: BP 139/88
[2017-08-25] MEDS: HYDROMORPHONE 2MG/ML INJ IV SCH ×8 (03:10→16:02)
[2017-08-25] MEDS: LORAZEPAM INJ 2 MG/ML VIAL IV SCH ×9 (03:10→16:00)
[2017-08-25] MEDS: LEVALBUTEROL HCL SOLN NEBU 0.63 MG/3 ML NEB INH SCH ×2 (04:45→07:18)
[2017-08-25] MEDS: IPRATROPIUM BROMIDE 0.02% 2.5 ML NEB NEB SCH ×2 (04:45→07:18)
[2017-08-25] MEDS: NYSTATIN SUSPENSION 5 ML UDC PO SCH (05:22)
[2017-08-25 06:27] VITALS: BP 146/73
[2017-08-25] MEDS: BUDESONIDE 0.5MG/2 ML NEB INH SCH (07:18)
[2017-08-25 07:23] VITALS: BP 149/91
[2017-08-25 07:26] VITALS: BP 149/91
[2017-08-25 11:26] VITALS: BP 125/85
--- NOTE | 2017-08-25 14:06 | Progress Note ---
DATE: August 25, 2017 CARDIOLOGY PROGRESS NOTE DICTATION CANCELLED. "DICTATION IN ERROR." Job#: [id number]
[2017-08-25 15:48] VITALS: BP 101/65
== END 2017-08-25 20:19 | disposition expired | DRG 207 ==
LOC: ER 10:10 → ERHOLD 18:38 → ICU 23:01 → MED/SURG2 08-23 21:48
PROVIDERS: ADMIT Family Medicine; ATTEND Family Medicine
PROC: 0BH17EZ Insertion of Endotracheal Airway into Trachea, Via Natural or Artificial Opening (ICD-10-PCS; principal; 2017-08-13)
PROC: 5A1955Z Respiratory Ventilation, Greater than 96 Consecutive Hours (ICD-10-PCS; 2017-08-13)
PROC: 5A09357 Assistance with Respiratory Ventilation, Less than 24 Consecutive Hours, Continuous Positive Airway Pressure (ICD-10-PCS; 2017-08-13)
PROC: 02HV33Z Insertion of Infusion Device into Superior Vena Cava, Percutaneous Approach (ICD-10-PCS; 2017-08-14)
PROC: 3E043XZ Introduction of Vasopressor into Central Vein, Percutaneous Approach (ICD-10-PCS; 2017-08-14)
DX: J44.1 Chronic obstructive pulmonary disease with (acute) exacerbation (principal); N17.0 Acute kidney failure with tubular necrosis; R57.9 Shock, unspecified; J18.9 Pneumonia, unspecified organism; J96.20 Acute and chronic respiratory failure, unspecified whether with hypoxia or hypercapnia; I82.411 Acute embolism and thrombosis of right femoral vein; E44.1 Mild protein-calorie malnutrition; N18.3 Chronic kidney disease, stage 3 (moderate); D75.1 Secondary polycythemia; I48.92 Unspecified atrial flutter; J44.0 Chronic obstructive pulmonary disease with (acute) lower respiratory infection; F17.200 Nicotine dependence, unspecified, uncomplicated; I12.9 Hypertensive chronic kidney disease with stage 1 through stage 4 chronic kidney disease, or unspecified chronic kidney disease; I25.10 Atherosclerotic heart disease of native coronary artery without angina pectoris; I73.9 Peripheral vascular disease, unspecified; Z95.820 Peripheral vascular angioplasty status with implants and grafts; Z66 Do not resuscitate; Z51.5 Encounter for palliative care; F41.9 Anxiety disorder, unspecified; E87.5 Hyperkalemia; K21.0 Gastro-esophageal reflux disease with esophagitis; Z78.1 Physical restraint status; E78.5 Hyperlipidemia, unspecified; N40.0 Benign prostatic hyperplasia without lower urinary tract symptoms; M54.9 Dorsalgia, unspecified; G89.29 Other chronic pain; Z28.21 Immunization not carried out because of patient refusal; Z79.82 Long term (current) use of aspirin
CPT/HCPCS: 36415; 36600; 71045; 71260; 74018; 76604; 76770; 80048; 80053; 80202; 81001; 81015; 82550; 82553; 82805; 82948; 83605; 83735; 83880; 84100; 84132; 84436; 84443; 84479; 84484; 85025; 85610; 85730; 87040; 87070; 87086; 87186; 87205; 93005; 93306; 93925; 93970; 94002; 94003; 94640; 94660; 96360; 96361; 96365; 96366; 96372; 96374; 96376; 99284; J0456; J0696; J1650; J1940; J2060; J2250; J2270; J2543; J2920; J2930; J3370; J3480; J7030; J7040; J7050; J7070; J7799; Q9967